=== PATIENT | male | born 1960 | race Caucasian/White ===

== ENCOUNTER 2017-11-03 09:09 | Emergency (ER) | payer BC, SELFPAY ==
--- NOTE | 2017-11-03 09:19 | XR_ITS ---
XR foot RT min 3V HISTORY: Right foot pain ITS.REASON: NO ACCIDENT ORDERING PHYSICIAN: Mora Forrest PATIENT AGE: 57 years COMPARISON: None FINDINGS: There is a nondisplaced transverse fracture involving the proximal aspect of the proximal phalanx of the third toe. A healing fracture involving the distal aspect of the second metatarsal. There is some flattening of the metatarsal head at that region with some overlying callus formation. Avascular necrosis of the head of second metatarsal is also a consideration. There is mild pes planus. IMPRESSION: 1. Nondisplaced fracture proximal phalanx of the third toe. 2. Healing fracture versus avascular necrosis of the head of the second metatarsal
[2017-11-03 09:30] VITALS: BP 147/64; PULSE 75; RESP 20; TEMP 37; O2SAT 99; BMI 36.9
--- NOTE | 2017-11-03 09:40 | HMH.EDUTC ---
[facility] [place] Clinical Impression: Toe fracture Qualifiers: Encounter type: initial encounter Toe: lesser toe Fracture type: closed Phalanx: proximal Fracture alignment: nondisplaced Laterality: right Qualified Code(s): S92.514A - Nondisplaced fracture of proximal phalanx of right lesser toe(s), initial encounter for closed fracture Disposition: Home, Self-Care Condition on Discharge: Good Instructions: How To Perform RICE (Rest, Ice, Compress, Elevate), Toe Fracture, DI for Toe Fracture Additional Instructions: Follow up with Dr Head in the Specialty clinic on November 05 at 830 am as instructed in the [facility] today for further treatment and evaluation and results on remaining labs Return if needed Follow up with family doctor Wear post op shoe until seen by Dr Head Referrals: Ashish Quiles MD [Primary Care Provider] - Ellen Head DPM [Physician] - 11/05/17 8:30 am Time of Disposition: 11:01 Medical Decision Making - Medical Records Medical records reviewed: Yes: I reviewed the patient's medical records. Vital Signs: 11/03/17 09:30 Temperature 98.6 F Temperature Source Temporal Artery Scan Pulse Rate [Right Radial] 75 Respiratory Rate 20 Blood Pressure [Right Arm] 147/64 Blood Pressure Mean [Right Arm] 91 02 Sat by Pulse Oximetry 99 Oxygen Delivery Method Room Air - Lab Data Lab Results 11/03/17 10:00: Uric Acid 5.9 Orders (Tests/Meds): ORDERS Category Date Time Status CRP [C-Reactive Protein] Stat Lab 11/03/17 10:51 Ordered Erythrocyte Sedimentation Rate Stat Lab 11/03/17 10:51 Ordered - Radiology Data #1 Image(s): Foot/Toes Image Reviewed: Yes I have reviewed radiologist's interpretation Non displaced fracture of the proximal phalanx of the third toe Healing fracture verses avascular necrosis of the head of the second metatarsal - Physician Consults Physician Consulted: Dr Head Time: 10:53 Reason -: Pt condition Comment/Response: Spoke with Dr Head advised to add ESR and CRP to labs, place patient in post op shoe and have him follow up in her office on at 830 am for further evaluation and exam - Tone Inquiry Pt receiving controlled substance: No Tone was queried for this patient: No - Reevaluation(s) Time: 10:57 Reevaluation #1: Patient placed in post op shoe, patient advised that he needed to follow up with Dr Head on for remaining lab results and further treatment and evaluation Patient verbalized understanding of instructions [facility] [place] HPI - General Stated complaint: Right Foot pain, no ao Mode of Arrival: Family Vehicle Source of Information: Patient Limitations: No Limitations Description of Symptoms (Recalled from Triage Doc. by RN): pt is having right foot pain for 1 week with swelling. pt has had gout before. HEENT Symptoms (Recalled from RN notes): No Resp Symptoms (Recalled from RN notes): No Skin Symptoms (Recalled from RN notes): No MS Symptoms (Recalled from RN notes): Yes (right foot pain and swelling) Functional Status (Recalled from RN notes): na - History of Present Illness Provider Complaint: Patient state that he noticed that he was having pain in the top of his right foot about a week ago State that he has had gout before and kind of feels like it did when he had it before State that pain is across the joints of his toes and has been slightly red, denies injury, States that foot has not been hot to touch just sore when he walks on it and bends his toes - Related Data Home Medications Medication Instructions Recorded Confirmed amlodipine 10 mg tablet 10 mg PO QDAY 10/05/17 11/03/17 carvedilol 25 mg tablet 25 mg PO BID 10/05/17 11/03/17 clopidogrel 75 mg tablet 75 mg PO QDAY 10/05/17 11/03/17 fenofibrate nanocrystallized 145 145 mg PO QDAY 10/05/17 11/03/17 mg tablet furosemide 40 mg tablet 40 mg PO BID tab 10/05/17 11/03/17 glimepiride 2 mg tablet 2 mg PO QDAY tab 10/05/17 11/03/17 linagliptin
--- NOTE | 2017-11-03 09:43 | ED_ITS ---
[facility] – [place] Disposition Clinical Impression: Toe fracture Qualifiers: Encounter type: initial encounter Toe: lesser toe Fracture type: closed Phalanx : proximal Fracture alignment: nondisplaced Laterality: right Qualified Code(s) : S92.514A - Nondisplaced fracture of proximal phalanx of right lesser toe(s), initial encounter for closed fracture Disposition: Home, Self-Care Condition on Discharge: Good Instructions: How To Perform RICE (Rest, Ice, Compress, Elevate), Toe Fracture , DI for Toe Fracture Additional Instructions: Follow up with Dr Head in the Specialty clinic on November 05 at 830 am as [facility] the [facility] today for further treatment and evaluation and results on remaining labs Return if needed Follow up with family doctor Wear post op shoe until seen by Dr Head Referrals: Ashish Quiles MD [Primary Care Provider] - Ellen Head DPM [Physician] - 11/05/17 8:30 am Time of Disposition: 11:01 Medical Decision Making - Medical Records Medical records reviewed: Yes: I reviewed the patient's medical records. Vital Signs: 11/03/17 09:30 Temperature 98.6 F Temperature Source Temporal Artery Scan Pulse Rate [Right Radial] 75 Respiratory Rate 20 Blood Pressure [Right Arm] 147/64 Blood Pressure Mean [Right Arm] 91 02 Sat by Pulse Oximetry 99 Oxygen Delivery Method Room Air - Lab Data Lab Results 11/03/17 10:00: Uric Acid 5.9 Orders (Tests/Meds): ORDERS Category Date Time Status CRP [C-Reactive Protein] Stat Lab 11/03/17 10:51 Ordered Erythrocyte Sedimentation Rate Stat Lab 11/03/17 10:51 Ordered - Radiology Data #1 Image(s): Foot/Toes Image Reviewed: Yes I have reviewed radiologist's interpretation Non displaced fracture of the proximal phalanx of the third toe Healing fracture verses avascular necrosis of the head of the second metatarsal - Physician Consults Physician Consulted: Dr Head Time: 10:53 Reason -: Pt condition Comment/Response: Spoke with Dr Head advised to add ESR and CRP to labs, place patient in post op shoe and have him follow up in her office on at 830 am for further evaluation and exam - Tone Inquiry Pt receiving controlled substance: No Tone was queried for this patient: No - Reevaluation(s) Time: 10:57 Reevaluation #1: Patient placed in post op shoe, patient advised that he needed to follow up with Dr Head on for remaining lab results and further treatment and evaluation Patient verbalized understanding of instructions [facility] [place] HPI - General Stated complaint: Right Foot pain, no ao Mode of Arrival: Family Vehicle Source of Information: Patient Limitations: No Limitations Description of Symptoms (Recalled from Triage Doc. by RN): pt is having right foot pain for 1 week with swelling. pt has had gout before. HEENT Symptoms (Recalled from RN notes): No Resp Symptoms (Recalled from RN notes): No Skin Symptoms (Recalled from RN notes): No MS Symptoms (Recalled from RN notes): Yes (right foot pain and swelling) Functional Status (Recalled from RN notes): na - History of Present Illness Provider Complaint: Patient state that he noticed that he was having pain in the top of his right foot about a week ago State that he has had gout before and kind of feels like it did when he had it before State that pain is across the joints of his toes and has been slightly red, denies injury, States that foot has
[2017-11-03 10:22] LABS: Uric Acid 5.9 mg/dL (2.6-7.2)
[2017-11-03 11:08] LABS: C-Reactive Protein < 0.2 mg/L (0.0-0.9)
[2017-11-03 11:23] VITALS: BP 150/46; PULSE 74; RESP 20; TEMP 36.7; O2SAT 99
[2017-11-03 11:59] LABS: Erythrocyte Sedimentation Rate 32 mm/hr (0-20)
== END 2017-11-03 11:25 | disposition home or self-care (01) ==
PROVIDERS: Emergency Provider Nurse Practitioner; PCP Family Medicine
DX: S92.514A Nondisplaced fracture of proximal phalanx of right lesser toe(s), initial encounter for closed fracture (principal); X58.XXXA Exposure to other specified factors, initial encounter; I48.91 Unspecified atrial fibrillation; I50.9 Heart failure, unspecified; I42.9 Cardiomyopathy, unspecified; E11.9 Type 2 diabetes mellitus without complications; I25.2 Old myocardial infarction; Z95.0 Presence of cardiac pacemaker; E78.5 Hyperlipidemia, unspecified; Z79.84 Long term (current) use of oral hypoglycemic drugs; Z79.02 Long term (current) use of antithrombotics/antiplatelets; Z79.899 Other long term (current) drug therapy
CPT/HCPCS: 36415; 73630; 84550; 85651; 86140; 99203

== ENCOUNTER → 2017-11-19 07:26 | Outpatient (CLI) | payer BC, SELFPAY ==
[2017-11-19 09:17] LABS: Alanine Aminotransferase 29 U/L (12-78); Albumin Level 3.8 gm/dL (3.4-5.0); Alkaline Phosphatase 56 U/L (46-116); Anion Gap 16.9 mEq/L (5-15); Aspartate Amino Transferase 14 U/L (15-37); Bilirubin,Direct 0.1 mg/dL (0.0-0.2); Bilirubin,Total 0.2 mg/dL (0.2-1.0); Blood Urea Nitrogen 36 mg/dL (7-18); Carbon Dioxide 21 mmol/L (21.0-32.0); Chloride 102 mmol/L (98-107); Chol/HDL Ratio 5.8 (1-3.5); Cholesterol 220 mg/dL (140-200); Creatinine,Serum 1.42 mg/dL (0.70-1.30); Estimated Glomerular Filt Rate 52 ml/min (>60); GFR (African American) 62 ML/MIN (>60); Glucose 224 mg/dL (74-106); HDL Cholesterol 38 mg/dL (27-67); LDL Cholesterol 115 mg/dL (0-130); Potassium 4.9 mmoL/L (3.5-5.1); Sodium 135 mmol/L (136-145); Total Protein,Serum 7.3 gm/dL (6.4-8.2); Triglycerides 337 mg/dL (30-200); VLDL Cholesterol 67 mg/dL (0-40)
== END ==
PROVIDERS: Physician Assistant; Visit Provider Internal Medicine
DX: N18.9 Chronic kidney disease, unspecified (principal); E78.4 Other hyperlipidemia; I25.10 Atherosclerotic heart disease of native coronary artery without angina pectoris; I50.22 Chronic systolic (congestive) heart failure
CPT/HCPCS: 36415; 80048; 80061; 80076; 83880

== ENCOUNTER → 2017-11-24 14:02 | Outpatient (CLI) | payer BC, SELFPAY ==
--- NOTE | 2017-11-24 14:04 | US_ITS ---
US Arterial Ankle Brachial Ind ITS.REASON: Ulceration of the right great toe, pain, claudication, previous smoker Evaluate for new skin changes ORDERING PHYSICIAN: Ellen Head DPM PATIENT AGE: 57 years TECHNIQUE: Segmental pressures obtained of both right and left leg. These are compared to brachial blood pressure to yield index at each level sampled including summary YADIRA. The data sheets from the procedure are available in PACS FINDINGS Rest study only performed today No prior studies available for comparison. Blood pressures reported are in millimeters mercury. RIGHT LEG YADIRA = 1.2 Right TBI 0.9. Brachial BP: 179 Thigh BP: 190 Calf BP: 194 Ankle PT: 219 Ankle DP : 203 Digit =157 LEFT LEG YADIRA = 0.8. Left tibia is 0.9 Brachial BPD: 182 Thigh BP: 196 Calf BP: 150 Ankle PT:152 Ankle DP: 153 Digit = 158 Pulses and waveforms: May waveforms of the left ankle otherwise unremarkable waveforms and pulses IMPRESSION: 1. Normal right YADIRA and TBI. 2. Slightly low left YADIRA of 0.8 indicating mild arterial disease with normal left YADIRA and slightly dampened left-sided waveforms at the ankle
== END ==
PROVIDERS: PCP Family Medicine; Visit Provider Podiatrist
DX: R23.9 Unspecified skin changes (principal)
CPT/HCPCS: 93922

== ENCOUNTER → 2017-12-03 08:14 | Outpatient (CLI) | payer BC, SELFPAY ==
--- NOTE | 2017-12-03 08:15 | XR_ITS ---
XR foot wt bearing RT 3V HISTORY: Right foot pain and swelling ORDERING PHYSICIAN: Ellen Head DPM PATIENT AGE: 57 years COMPARISON: 11/03/2017 FINDINGS: There is a comminuted fracture involving the distal aspect of the second metatarsal with prominent callus formation developing in the distal shaft of the second metatarsal. There is flattening of the head of the second metatarsal as mentioned previously. Lucency is noted at the distal neck of second metatarsal. A comminuted fracture involves the proximal aspect of the proximal phalanx of the third toe with intra-articular involvement and mild separation of the distal fracture fragment by approximately 3 mm. There is mild dorsal angulation of the distal fracture fragment.. Fracture line is now more prominent on today's study compared to the previous exam. There is a nondisplaced mildly impacted fracture involving the proximal aspect of the proximal phalanx of the fourth toe. This fracture was not readily apparent on the previous exam. IMPRESSION: 1. Comminuted fracture of the distal second metatarsal with overlying callus formation with good alignment. 2. Comminuted fracture base of the proximal phalanx of the third toe now more prominent. 3. Transverse fracture of the base of the proximal phalanx of the fourth toe not readily apparent on the previous exam
== END ==
PROVIDERS: Visit Provider Podiatrist
DX: T14.8XXA Other injury of unspecified body region, initial encounter (principal); E11.628 Type 2 diabetes mellitus with other skin complications
CPT/HCPCS: 73630

== ENCOUNTER → 2017-12-15 08:55 | Outpatient (CLI) | payer BC, SELFPAY ==
--- NOTE | 2017-12-15 08:55 | XR_ITS ---
Right foot Weightbearing Foot 3 Views HISTORY: Follow-up fracture ORDERING PHYSICIAN: Ellen Head DPM PATIENT AGE: 57 years COMPARISON: 12/03/2017 FINDINGS: There is a healing fracture involving the distal shaft of the second metatarsal with prominent callus formation with good alignment. Comminuted fracture involves the base of the proximal phalanx of the third toe with mild dorsal angulation of the distal fracture fragment with an intra-articular component. This fracture is not significant change. There is also a fracture noted at the base of the proximal phalanx of the fourth toe not significant change. IMPRESSION: Overall no change healing fracture of the distal aspect of second metatarsal and a nondisplaced fractures involving the base of the proximal phalanx of the third and fourth toes
== END ==
PROVIDERS: Visit Provider Podiatrist
DX: E11.610 Type 2 diabetes mellitus with diabetic neuropathic arthropathy (principal)
CPT/HCPCS: 73630

== ENCOUNTER → 2018-01-05 08:46 | Outpatient (CLI) | payer BC, SELFPAY ==
--- NOTE | 2018-01-05 08:47 | XR_ITS ---
XR foot wt bearing RT 3V HISTORY: ITS.REASON: pain ORDERING PHYSICIAN: Ellen Head DPM PATIENT AGE: 57 years COMPARISON: 12/15/2017 FINDINGS: There is a healing fracture involving the distal aspect of the second metatarsal with abundant callus formation as before. The callus formation may be slightly more ossified. There remains good alignment. Comminuted fracture involves proximal aspect of the proximal phalanx of the third toe with intra-articular involvement with some callus formation medially. Nondisplaced fracture involves the proximal aspect of the proximal phalanx of the fourth toe not significantly changed. IMPRESSION: Healing fractures of the second metatarsal and proximal phalanges of the third and fourth toes
== END ==
PROVIDERS: Visit Provider Podiatrist
DX: M79.671 Pain in right foot (principal)
CPT/HCPCS: 73630

== ENCOUNTER 2018-03-01 10:53 | Observation (INO) ==
[2018-03-01 12:28] LABS: Anion Gap 16.7 mEq/L (5-15); Blood Urea Nitrogen 27 mg/dL (7-18); Carbon Dioxide 24 mmol/L (21.0-32.0); Chloride 102 mmol/L (98-107); Glucose 152 mg/dL (74-106); Potassium 4.7 mmoL/L (3.5-5.1); Sodium 138 mmol/L (136-145)
[2018-03-01 15:23] LABS: Basophils % 0.3 % (0.1-2.0); Eosinophils # 0.2 K/mm3 (0.0-0.4); Hematocrit 34.3 % (42.0-52.0); Hemoglobin 10.7 g/dL (14.1-18.0); Lymphocytes # 1.4 K/mm3 (0.7-4.5); Lymphocytes % 12.9 K/mm3 (10-50); Mean Corpuscular HGB Conc 31.2 g/dL (31.8-35.4); Mean Corpuscular Hemoglobin 27.8 pg (27.0-31.2); Mean Corpuscular Volume 88.8 fl (80-94); Mean Platelet Volume 9.1 fl (7.4-10.4); Monocytes # 0.8 K/mm3 (0.1-1.0); Monocytes % 7.2 % (1.7-9.3); Neutrophils # 8.3 K/mm3 (1.8-7.8); Neutrophils % 77.7 % (37.0-80.0); Platelet Count 191 K/mm3 (142-424); Red Blood Count 3.86 M/mm3 (4.60-6.20); Red Cell Distribution Width 14.5 % (11.5-17.5); White Blood Count 10.6 K/mm3 (4.8-10.8)
--- NOTE | 2018-03-01 15:27 | History & Physical Report ---
*Admission Date: 03/01/18 <RandleMaggie burton 03/01/18 15:48> *Chief complaint: Shortness of breath <Maggie Randle 03/01/18 15:48> *History of present illness: Mr. Luke is a 57-year-old male with a history of hypertension hyperlipidemia type 2 diabetes mellitus, coronary artery disease, atrial fibrillation, chronic systolic heart failure, chronic kidney disease, and cardiomyopathy who presented today to the office of Dr. Concepcion with increasing shortness of breath for the past 4 days. He denies having any chest pain. Dr. Concepcion recommended admission for further evaluation and treatment. Patient describes extreme fatigue making it difficult for him to even walk. He states he has had no chest pain. He states that his heart has been fluttering. He states he has been compliant with taking all of his medicines. He denies cough, fever, and any GI symptoms. The time of this exam patient is lying in the bed. He appears comfortable. Dr. Concepcion has recommended Lasix 80 mg twice daily. <RaziaMaggie 03/01/18 15:57> [facility] History Medical History: Reports:: Atrial Fibrillation, Cardiomyopathy, Congestive Heart Failure, Coronary Artery Disease, Diabetes Mellitus Type 2, Hyperlipidemia , Internal Pacemaker, Myocardial Infarction, Palpitations, Renal Insufficiency Denies:: Cancer, Diabetes Mellitus Type 1, MRSA, Seizures <RandleMaggie burton 03/01/18 15:48> Other Medical History: Reports: Anemia <RandleMaggie 03/01/18 15:48> Laterality Cases: Bilateral: Tonsillectomy <RaziaMaggie 03/01/18 15:48> Other Surgeries: Yes: Pacemaker, Other (R arm sx, LHC) <RandleMaggie 15:48> Amputation: No <RaziaMaggie 03/01/18 15:48> Fractures: No <Maggie Randle 03/01/18 15:48> Comment: Cardiac stent placements <Maggie Randle 03/01/18 15:48> - *Social History Educational Level: Completed High School <RaziaMaggie 03/01/18 15:48> Smoking Status: Former smoker <Maggie Randle 03/01/18 15:48> # Packs/Day (cigarettes): 0 <Maggie Randle 03/01/18 15:48> #Yrs smoked (if former smoker): 0 <Maggie Randle 03/01/18 15:48> Smoking End Date: 2013 <Maggie Randle 03/01/18 15:48> Alcohol Intake: never <Maggie Randle 03/01/18 15:48> Alcohol Intake Frequency:: holidays/special occasions only <Maggie Randle 15:48> Substance Use Type: denies use <Maggie Randle 03/01/18 15:48> Occupational Status: employed <Maggie Randle 03/01/18 15:48> Housing: house <Maggie Randle 03/01/18 15:48> Household Members: spouse <Maggie Randle 03/01/18 15:48> - Psychiatric History Expresses thoughts of harming self/others: None <Maggie Randle 03/01/18 15: 48> Suicide Plan Description: No Plan <Maggie Randle 03/01/18 15:48> *Family Hx:: Cancer, Coronary Artery Disease <Maggie Randle 03/01/18 15:48> Review of Systems - Constitutional Reports fatigue, Reports lack of energy, Denies body ache(s), Denies fever(s), Denies headache(s) <Maggie Randle 03/01/18 15:48> - ENT Denies ear pain, Denies headache(s), Denies sore throat <Maggie Randle 03/01 15:48> - *Cardiovascular Reports shortness of breath, Reports irregular heart rhythm, Reports leg swelling, Denies chest pain <Maggie Randle 03/01/18 15:48> - *Respiratory Reports shortness of breath, Denies chest congestion, Denies cough, Denies coughing up blood <Maggie Randle 03/01/18 15:48> - *Gastrointestinal Denies abdominal pain, Denies change in bowel habits, Denies constipation, Denies heartburn, Denies difficulty swallowing, Denies heartburn, Denies vomiting blood, Denies nausea, Denies vomiting <Maggie Randle 03/01/18 15:48 > - *Genitourinary Denies difficulty urinating <Maggie Randle - 03/01/18 15:48> - *Musculoskeletal Denies body aches <Maggie Randle - 03/01/18 15:48> Comments: Recently has had 3 fractured toes on the right foot. He had to wear a boot for this. He has been followed by Dr. Head <RaziaMaggie - 03/01/18 15:48> - *Neurologic Reports unsteadiness, Denies behavioral changes <Hailey Randlehy - 03/01/18 15: 48> Meds Home Medications Medication Instructions Recorded Confirmed Type amlodipine 10 mg tablet 10 mg PO QDAY 10/05/17 03/01/18 History carvedilol 25 mg tablet 25 mg PO BID 10/05/17 03/01/18 History fenofibrate nanocrystallized 145 145 mg PO QDAY 10/05/17 03/01/18 History mg tablet linagliptin 5 mg tablet 5 mg PO QDAY 10/05/17 03/01/18 History metformin 850 mg tablet 850 mg PO BID 10/05/17 03/01/18 History spironolactone 50 mg tablet 50 mg PO BID 10/05/17 03/01/18 History furosemide 40 mg tablet 40 mg PO DAILY tab 11/18/17 03/01/18 History aspirin 81 mg tablet,delayed 81 mg PO DAILY tab 02/17/18 03/01/18 History release glimepiride 2 mg tablet 2 mg PO BID tab 02/17/18 03/01/18 History Rosuvastatin Calcium 40 mg PO DAILY 03/01/18 03/01/18 History <Ashish Quiles - 03/01/18 17:18> Allergies Allergy/AdvReac Type Severity Reaction Status Date / Time No Known Allergies Allergy Verified 01/05/18 10:00 <Ashish Quiles - 03/01/18 17:18> Exam Vital signs and Labs for Last 24 Hours: Temp Pulse Resp BP Pulse Ox 98.3 F 62 20 155/71 97 03/01/18 14:54 03/01/18 14:54 03/01/18 14:54 03/01/18 14:54 03/01/18 14:54 Laboratory Results - last 24 hr 03/01/18 10:55: Sodium 138, Potassium 4.7, Chloride 102, Carbon Dioxide 24, Anion Gap 16.7 H, BUN 27 H, Creatinine 1.72 H, Estimated GFR 41 L, Est GFR ( Amer) 50 L, Glucose 152 H, Calcium 9.0 03/01/18 10:55: B-Natriuretic Peptide 1240 H 03/01/18 14:55: WBC 10.6, RBC 3.86 L, Hgb 10.7 L, Hct 34.3 L, MCV 88.8, MCH 27.8 , MCHC 31.2 L, RDW 14.5, Plt Count 191, MPV 9.1, Neut % (Auto) 77.7, Lymph % ( Auto) 12.9, Morton % (Auto) 7.2, Eos % (Auto) 2.0, Baso % (Auto) 0.3, Neut # (Auto ) 8.3 H, Lymph # (Auto) 1.4, Morton # (Auto) 0.8, Eos # (Auto) 0.2, Baso # (Auto) 0.0 03/01/18 14:55: Magnesium 1.6 03/01/18 14:55: Troponin I < 0.02, TSH 0.98 <Ashish Quiles - 03/01/18 17:18> Temp Pulse Resp BP Pulse Ox 98.3 F 62 20 155/71 97 03/01/18 14:54 03/01/18 14:54 03/01/18 14:54 03/01/18 14:54 03/01/18 14:54 Laboratory Results - last 24 hr 03/01/18 10:55: Sodium 138, Potassium 4.7, Chloride 102, Carbon Dioxide 24, Anion Gap 16.7 H, BUN 27 H, Creatinine 1.72 H, Estimated GFR 41 L, Est GFR ( Amer) 50 L, Glucose 152 H, Calcium 9.0 03/01/18 10:55: B-Natriuretic Peptide 1240 H <Maggie Randle - 03/01/18 15:48> I & O for Last 24 hours: Intake & Output 02/27/18 02/28/18 03/01/18 03/02/18 11:59 11:59 11:59 11:59 Weight 311 lb 8 oz <Ashish Quiles - 03/01/18 17:18> Intake & Output 02/27/18 02/28/18 03/01/18 03/02/18 11:59 11:59 11:59 11:59 Weight 311 lb 8 oz <Maggie Randle 03/01/18 15:48> Radiology Reports for the Last 24 Hours: Chest x-ray 03/01/2018 IMPRESSION: Stable chest with nothing definitely acute Mild cardiomegaly. Pacer/February device overlying left chest. <Maggie Randle 03/01/18 15:48> - Constitutional no acute distress <Maggie Randle 03/01/18 15:48> - *Routine HEENT Exam Head: Present: normocephalic, atraumatic <Maggie Randle 03/01/18 15:48> Eye: Present: PERRL. Absent: conjunctival icterus, scleral injection <Maggie Randle 03/01/18 15:48> ENT: Present: mucous membranes moist, oropharynx clear, nares patent <Maggie Randle 03/01/18 15:48> - *Routine Neck Exam Present: supple. Absent: carotid bruit, lymphadenopathy, thyromegaly <Maggie Randle 03/01/18 15:48> - *Routine Respiratory Exam Present: CTA bilaterally (Anteriorly and posteriorly. Diminished breath sounds posteriorly) <Maggie Randle 03/01/18 15:48> - *Routine Cardiovascular Exam Present: RRR <Maggie Randle 03/01/18 15:48> - *Routine Abdominal Exam Present: soft, normoactive bowel sounds. Absent: tenderness <Maggie Randle 03/01/18 15:48> Comments: Obese <[facility] 03/01/18 15:48> - *Routine Extremities Exam Present: edema (Of the right leg no edema in the left leg). Absent: clubbing, calf tenderness <Maggie Randle 03/01/18 15:48> - *Routine Neurological Exam Present: alert, oriented X3, moving all extremities. Absent: altered mental status <Maggie Randle 03/01/18 15:48> H&P: Result - Labs Labs: Short CBC 03/01/18 Range/Units 14:55 WBC 10.6 (4.8-10.8) K/mm3 Hgb 10.7 L (14.1-18.0) g/dL Hct 34.3 L (42.0-52.0) % Plt Count 191 (142-424) K/mm3 [facility] 03/01/18 10:55 Sodium 138 Potassium 4.7 Chloride 102 Carbon Dioxide 24 BUN 27 H Creatinine 1.72 H Glucose 152 H Calcium 9.0 Cardiac Enzymes 03/01/18 Range/Units 14:55 Troponin I < 0.02 (0.00-0.06) ng/ml <Ashish Quiles - 03/01/18 17:18> [facility] 03/01/18 10:55 Sodium 138 Potassium 4.7 Chloride 102 Carbon Dioxide 24 BUN 27 H Creatinine 1.72 H Glucose 152 H Calcium 9.0 <Maggie Randle - 03/01/18 15:48> Assessment and Plan (1) CHF (congestive heart failure) Current visit: Yes Status: Acute Category: Medical Code(s): I50.9 - Heart failure, unspecified (2) Hyperlipidemia Current visit: No Status: Acute Qualifiers: Hyperlipidemia type: other hyperlipidemia Qualified Code(s): E78.4 - Other hyperlipidemia Category: Medical Code(s): E78.5 - Hyperlipidemia, unspecified (3) Diabetes mellitus Current visit: No Status: Chronic Qualifiers: Diabetes mellitus type: type 2 Diabetes mellitus chcf insulin use: with chcf use Diabetes mellitus complication status: with neurologic complications Diabetes mellitus complication detail: with polyneuropathy Qualified Code(s): E11.42 - Type 2 diabetes mellitus with diabetic polyneuropathy; Z79.4 - director long term care (current) use of insulin Category: Medical Code(s): E11.9 - Type 2 diabetes mellitus without complications (4) Sleep apnea Current visit: No Status: Chronic Qualifiers: Sleep apnea type: unspecified type Qualified Code(s): G47.30 - Sleep apnea , unspecified Category: Medical Code(s): G47.30 - Sleep apnea, unspecified (5) Hypertensive disorder Current visit: No Status: Chronic Qualifiers: Hypertension type: essential hypertension Qualified Code(s): I10 - Essential (primary) hypertension Category: Medical Code(s): I10 - Essential (primary) hypertension (6) Chronic kidney disease Current visit: No Status: Acute Qualifiers: Chronic kidney disease stage: unspecified stage Qualified Code(s): N18.9 - Chronic kidney disease, unspecified Category: Medical Code(s): N18.9 - Chronic kidney disease, unspecified (7) Hypercalcemia Current visit: No Status: Acute Category: Medical Code(s): E83.52 - Hypercalcemia <Ashish Quiles - 03/01/18 17:18> (1) CHF (congestive heart failure) Current visit: Yes Status: Acute Category: Medical Code(s): I50.9 - Heart failure, unspecified (2) Chronic kidney disease Current visit: No Status: Acute Qualifiers: Chronic kidney disease stage: unspecified stage Qualified Code(s): N18.9 - Chronic kidney disease, unspecified Category: Medical Code(s): N18.9 - Chronic kidney disease, unspecified (3) Chronic systolic heart failure Current visit: No Status: Chronic Category: Medical Code(s): I50.22 - Chronic systolic (congestive) heart failure (4) Coronary arteriosclerosis Current visit: No Status: Chronic Category: Medical Code(s): I25.10 - Atherosclerotic heart disease of [place] coronary artery without angina pectoris (5) Diabetes mellitus Current visit: No Status: Chronic Qualifiers: Diabetes mellitus type: type 2 Diabetes mellitus terminologist insulin use: with chcf use Diabetes mellitus complication status: with neurologic complications Diabetes mellitus complication detail: with polyneuropathy Qualified Code(s): E11.42 - Type 2 diabetes mellitus with diabetic polyneuropathy; Z79.4 - director long term care (current) use of insulin Category: Medical Code(s): E11.9 - Type 2 diabetes mellitus without complications (6) Hypertensive disorder Current visit: No Status: Chronic Qualifiers: Hypertension type: essential hypertension Qualified Code(s): I10 - Essential (primary) hypertension Category: Medical Code(s): I10 - Essential (primary) hypertension (7) Sleep apnea Current visit: No Status: Chronic Qualifiers: Sleep apnea type: unspecified type Qualified Code(s): G47.30 - Sleep apnea , unspecified Category: Medical Code(s): G47.30 - Sleep apnea, unspecified (8) Toe fracture Current visit: No Status: Chronic Qualifiers: Encounter type: initial encounter Toe: lesser toe Fracture type: closed Phalanx: proximal Fracture alignment: nondisplaced Laterality: right Qualified Code(s): S92.514A - Nondisplaced fracture of proximal phalanx of right lesser toe(s), initial encounter for closed fracture Category: Medical Code(s): S92.919A - Unspecified fracture of unspecified toe( s), initial encounter for closed fracture <Maggie Randle - 03/01/18 15:54> - Assessment and plan all Dx Assessment and Plan for all problems:: Saw patient, agree with above note. <Ashish Quiles - 03/01/18 17:18> monitor; diuresis; ECHO <Maggie Randle - 03/01/18 15:52>
--- NOTE | 2018-03-01 15:37 | Consult Report ---
History of Present Illness Consult date: 03/01/18 Consult reason: congestive heart failure Chief complaint: Congestive heart failure, shortness of breath and edema of lower extremity Additional Medical History:: 1. Cardiomypathy a. Last echocardiogram (03/23): Ejection fraction 40% with segmental wall motion. 2. Coronary arteriosclerosis a. Acute ST elevation myocardial infarction (09/22) b. Last catheterization (09/22). Severely elevated left ventricular end diastolic pressure at 35mmHg. 3. Hypertension 4. Chronic Kidney disease, unspecific CKD stage. a. Creatinine 1.72 and BUN 27 (03/01/18) 5. Chronic Systolic Heart failure a. Non-functioning pacemaker defibrillator that had been turned off for 10+ years due to continuously shocking pt. 6. Hyperlipidemia a. LDL 115 (11/22) b. Currently on a statin. 7. Type 2 Diabetes Mellitus a. Non-complaint 8. Obstructive sleep apnea a. Untreated 9. Atrial fibrillation a. Currently on Xarelto. History of present illness: 57 year old white male admitted to facility for Congestive heart failure excerbation. Pt stated that he had been having increase shortness of breath and edema of the lower right extremity for the past 2-3 days. Pt denies chest pain or dizziness. Denies palpitations. Pt stated that he continues to take his diuretics as prescribed but the fluid was still in his abdomen and lower extremities. Pt does have a history of Congestive heart failure with severe elevated left ventricular end diastolic pressure at 35 from cath on 09/22. Last echocardiogram revealed Ef of 40% with abnormal segmental wall motion (03/23). Pt does have pacemaker/defibrillator intact but was turned off over 10 years ago due to continuous shocking from the defibrillator. Dr. Concepcion and pt have discussed in length the benefits of BI-V pacemaker/defibrillator but pt continues to refuse to have implanted. Initial EKG revealed Atrial fibrillation with possible anterior infarct with heart rate of 75bpm. BMP revealed Creatinine of 1.72 and BUN of 27 which have increased since 11/22. BNP 1240. Last BNP in 11/22 was 230. Chest xray revealed stable chest with nothing definitely acute and mild cardiomegaly. Pt admitted for diuretic therapy. [facility] History Medical History: Reports:: Atrial Fibrillation, Cardiomyopathy, Congestive Heart Failure, Coronary Artery Disease, Diabetes Mellitus Type 2, Hyperlipidemia , Internal Pacemaker, Myocardial Infarction, Palpitations, Renal Disease Denies:: Cancer, Diabetes Mellitus Type 1, MRSA Other Medical History: Reports: Anemia Laterality Cases: Bilateral: Tonsillectomy Other Surgeries: Yes: Pacemaker, Other (R arm sx, LHC) Amputation: No Fractures: No - *Social History Educational Level: Completed High School Smoking Status: Former smoker # Packs/Day (cigarettes): 0 #Yrs smoked (if former smoker): 0 Smoking End Date: 2013 Alcohol Intake: never Alcohol Intake Frequency:: holidays/special occasions only Substance Use Type: denies use Occupational Status: employed Housing: house Household Members: spouse - Psychiatric History Expresses thoughts of harming self/others: None Suicide Plan Description: No Plan *Family Hx:: No significant family history Meds Home Medications Medication Instructions Recorded Confirmed Type amlodipine 10 mg tablet 10 mg PO QDAY 10/05/17 11/03/17 History carvedilol 25 mg tablet 25 mg PO BID 10/05/17 11/03/17 History fenofibrate nanocrystallized 145 145 mg PO QDAY 10/05/17 11/03/17 History mg tablet linagliptin 5 mg tablet 5 mg PO QDAY 10/05/17 11/03/17 History metformin 850 mg tablet 850 mg PO BID 10/05/17 11/03/17 History spironolactone 50 mg tablet 50 mg PO BID 10/05/17 11/03/17 History furosemide 40 mg tablet 40 mg PO DAILY tab 11/18/17 History aspirin 81 mg tablet,delayed 81 mg PO DAILY tab 02/17/18 History release glimepiride 2 mg tablet 2 mg PO BID tab 02/17/18 History Rosuvastatin Calcium 40 mg PO DAILY 03/01/18 03/01/18 History Allergies Allergy/AdvReac Type Severity Reaction Status Date / Time No Known Allergies Allergy Verified 01/05/18 10:00 Review of Systems - Review of Systems Review of systems:: pertinent systems reviewed and negative unless documented below - Constitutional Reports daytime sleepiness, Reports fatigue, Reports lack of energy, Reports weakness, Reports weight gain - ENT Denies dizziness, Denies difficulty swallowing - *Cardiovascular Reports shortness of breath, Reports shortness of breath with activity, Reports generalized swelling, Reports irregular heart rhythm, Reports leg swelling, Reports shortness of breath when lying down, Denies chest pain, Denies chest pain at rest, Denies chest pain with activity, Denies leg pain with activity, Denies lightheadedness, Denies radiating jaw, neck or arm pain - *Respiratory Reports shortness of breath, Reports shortness of breath with activity, Denies change in phlegm color, Denies chest congestion, Denies cough, Denies stridor, Denies wheezing - *Gastrointestinal Reports bloating, Denies abdominal pain, Denies heartburn, Denies difficulty swallowing - *Musculoskeletal Reports muscle weakness, Denies abnormal walking - *Neurologic Denies abnormal walking, Denies abnormal hearing, Denies abnormal speech, Denies confusion, Denies tingling/numbness/burning sensations - Psychiatric Denies abnormal sleep pattern, Denies confusion, Denies irritability - Endocrine Reports increased thirst Exam Vital signs and Labs for Last 24 Hours: Temp Pulse Resp BP Pulse Ox 98.3 F 62 20 155/71 97 03/01/18 14:54 03/01/18 14:54 03/01/18 14:54 03/01/18 14:54 03/01/18 14:54 Laboratory Results - last 24 hr 03/01/18 10:55: Sodium 138, Potassium 4.7, Chloride 102, Carbon Dioxide 24, Anion Gap 16.7 H, BUN 27 H, Creatinine 1.72 H, Estimated GFR 41 L, Est GFR ( Amer) 50 L, Glucose 152 H, Calcium 9.0 03/01/18 10:55: B-Natriuretic Peptide 1240 H I & O for Last 24 hours: Intake & Output 02/26/18 02/27/18 02/28/18 03/01/18 23:59 23:59 23:59 23:59 Weight 311 lb 8 oz - Constitutional mild distress, obese - *Routine HEENT Exam Head: Present: normocephalic Eye: Present: EOMI ENT: Present: mucous membranes moist - *Routine Neck Exam Present: supple, full ROM, normal carotid upstroke, trachea midline. Absent: JVD, carotid bruit, lymphadenopathy, thyromegaly - Routine Chest/Breast/Axilla Exam Chest wall: Present: tenderness, pacemaker. Absent: mass - *Routine Respiratory Exam Present: accessory muscle use, CTA bilaterally - *Routine Cardiovascular Exam Present: RRR, Normal S1, Normal S2, murmur, S3, irregular rhythm. Absent: gallop, rubs - *Routine Abdominal Exam Present: distended, firm - *Routine Extremities Exam Present: edema, full ROM, pulses intact, normal capillary refill. Absent: cyanosis, clubbing - *Routine Skin Exam Present: intact, dry, warm. Absent: cyanosis, erythema, rash - *Routine Neurological Exam Present: alert, oriented X3, CN II-XII intact, moving all extremities, hearing grossly intact, normal speech - Routine Psychiatric Exam Present: normal affect Assessment and Plan (1) CHF (congestive heart failure) Current visit: Yes Status: Acute Category: Medical Code(s): I50.9 - Heart failure, unspecified (2) Hyperlipidemia Current visit: No Status: Acute Qualifiers: Hyperlipidemia type: other hyperlipidemia Qualified Code(s): E78.4 - Other hyperlipidemia Category: Medical Code(s): E78.5 - Hyperlipidemia, unspecified (3) Diabetes mellitus Current visit: No Status: Chronic Qualifiers: Diabetes mellitus type: type 2 Diabetes mellitus 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 Diabetes mellitus complication status: with neurologic complications Diabetes mellitus complication detail: with polyneuropathy Qualified Code(s): E11.42 - Type 2 diabetes mellitus with diabetic polyneuropathy; Z79.4 - intermodal owner operator truck driver (current) use of insulin Category: Medical Code(s): E11.9 - Type 2 diabetes mellitus without complications (4) Sleep apnea Current visit: No Status: Chronic Qualifiers: Sleep apnea type: unspecified type Qualified Code(s): G47.30 - Sleep apnea , unspecified Category: Medical Code(s): G47.30 - Sleep apnea, unspecified (5) Hypertensive disorder Current visit: No Status: Chronic Qualifiers: Hypertension type: essential hypertension Qualified Code(s): I10 - Essential (primary) hypertension Category: Medical Code(s): I10 - Essential (primary) hypertension (6) Chronic kidney disease Current visit: No Status: Acute Qualifiers: Chronic kidney disease stage: unspecified stage Qualified Code(s): N18.9 - Chronic kidney disease, unspecified Category: Medical Code(s): N18.9 - Chronic kidney disease, unspecified (7) Hypercalcemia Current visit: No Status: Acute Category: Medical Code(s): E83.52 - Hypercalcemia - Assessment and plan all Dx Assessment and Plan for all problems:: Plan: 1. Obtain Echocardiogram for LV function and valve status. 2. Add Lasix 80mg BID IV for fluid retention and elevated creatinine and BUN. 3. Continue current medication regimen.
[2018-03-01 15:43] LABS: Thyroid Stimulating Hormone 0.98 uIU/ml (0.358-3.740)
--- NOTE | 2018-03-01 20:12 | Cardiology Report ---
PROCEDURE: 2-D M-mode and color Doppler study INDICATIONS FOR THE TEST: Chest pain COPD= Heart Murmur Tobacco Smoking Palpitations Fatigue Syncope Edema Hypertension Diabetes Mellitus Rheumatic Fever SOB=MAGUIRE Obesity Hyperlipidemia Family History HD Additional History PATIENT INFORMATION HEIGHT: 74 WEIGHT:302 GENDER: Male B/P:149/71 2-D/M-MODE INTERPRETATION: 2-D MEASUREMENTS OBSERVED VALUES IN CMS Right Ventricular Dimension (RVDd) 3.6 Interventricular Septum (Thickness)(IVsd) 1.7 Left Ventricular Internal Dimensions(LVIDd) 6.2 Left Ventricular Posterior Wall (Thickness)(LVPWd) 1.2 Aortic Root 3.9 Aortic Cusp Separation 2.2 Left Atrial Dimensions (LAD) 5.2 2D 1. Technically difficult study because of the patient's factor and poor acoustic windows, endocardial surfaces are poorly visualized despite use of contrast 2. Left atrium is moderately enlarged, left ventricle is mildly dilated, mild concentric left ventricular hypertrophy, reduced left ventricular systolic function, visually estimated ejection fraction approximately 40%, there is marked hypokinesis involving the inferior, inferobasal and inferolateral apical wall. 3. The right atrium and right ventricle are enlarged with normal contractility. 4. The mitral and tricuspid valve leaflets are minimally thickened. 5. The pulmonic valve is poorly visualized. 6. No significant pericardial effusion noted. DOPPLER INTERROGATION: Doppler interrogation of the aortic, mitral and tricuspid valvular presence of moderate mitral and mild tricuspid regurgitation, tricuspid regurgitant jet velocity is insufficient for calculation of the right ventricular systolic pressure, diastolic parameters are inconclusive. CONCLUSION: 1. Moderately enlarged left atrium, mildly dilated left ventricle, reduced left ventricular systolic function, visually estimated ejection fraction approximately 40% with multiple segmental wall motion abnormality described above, diastolic parameters are inconclusive. 2. Mildly enlarged right ventricle with normal contractility. 3. Moderate mitral and mild tricuspid regurgitation 4. No significant pericardial effusion noted.
[2018-03-02 06:04] LABS: Basophils % 0.4 % (0.1-2.0); Eosinophils % 0.4 % (0.1-12.0); Hematocrit 33.3 % (42.0-52.0); Hemoglobin 10.1 g/dL (14.1-18.0); Lymphocytes # 1.1 K/mm3 (0.7-4.5); Lymphocytes % 13.1 K/mm3 (10-50); Mean Corpuscular HGB Conc 30.3 g/dL (31.8-35.4); Mean Corpuscular Hemoglobin 27.1 pg (27.0-31.2); Mean Corpuscular Volume 89.3 fl (80-94); Mean Platelet Volume 9.9 fl (7.4-10.4); Monocytes # 0.8 K/mm3 (0.1-1.0); Monocytes % 10.1 % (1.7-9.3); Neutrophils # 6.4 K/mm3 (1.8-7.8); Platelet Count 176 K/mm3 (142-424); Red Blood Count 3.73 M/mm3 (4.60-6.20); Red Cell Distribution Width 14.2 % (11.5-17.5); White Blood Count 8.4 K/mm3 (4.8-10.8)
[2018-03-02 06:20] LABS: Anion Gap 12.9 mEq/L (5-15); Calcium 8.9 mg/dL (8.5-10.1); Chol/HDL Ratio 2.8 (1-3.5); Potassium 3.9 mmoL/L (3.5-5.1)
--- NOTE | 2018-03-02 07:38 | Pharmacy Consult Notes ---
[facility] Pharmacy VTE Monitoring - Patient Demographics Admission date: 03/01/18 Report Date: 03/02/18 Time: 07:37 Allergies/Adverse Reactions: Patient Allergies No Known Allergies Allergy (Verified 01/05/18 10:00) Height: 1.85 m Weight: 141.294 kg Patient Problems: Current Active Problems CHF (congestive heart failure) (Acute) - VTE Risk Labs: VTE Related Lab Results Hgb 10.1 g/dL (14.1-18.0) L 03/02/18 05:45 Hct 33.3 % (42.0-52.0) L 03/02/18 05:45 Plt Count 176 K/mm3 (142-424) 03/02/18 05:45 BUN 25 mg/dL (7-18) H 03/02/18 05:45 Creatinine 1.66 mg/dL (0.70-1.30) H 03/02/18 05:45 Estimated Creat Clear 99 mL/min (0-300) 03/02/18 05:45 Was VTE Risk Assessment Performed: Yes VTE Risk Level: Low Risk - Prophylaxis VTE Prophylaxis Ordered?: Yes Types of VTE Prophylaxis: TEDS Knee High, Pharmacological Location of Applied Device: Bilateral Lower Extremeties Pharmacologic Type: Other (XARELTO) - VTE Diagnosis Confirmed Treatment or plan recommended: Continue Current Treatment
--- NOTE | 2018-03-02 08:29 | Progress Note ---
<Maggie Randle - Last Filed: 03/02/18 08:25> Internal Medicine - PN: Subj *Date: 03/02/18 *Time: 08:25 Interval history: Did not sleep much during the night. Denies shortness of breath and chest discomfort. He has been eating without difficulty and is hungry this morning. He has been up in the room. Cardiology has seen the patient this morning and states it is okay for him to go home this today with Lasix 80 mg in the morning and 40 mg in the p.m. Exam Vital signs and Labs for Last 24 Hours: Temp Pulse Resp BP Pulse Ox 98.6 F 68 18 114/50 100 03/02/18 07:46 03/02/18 07:46 03/02/18 07:46 03/02/18 07:46 03/02/18 07:46 Laboratory Results - last 24 hr 03/01/18 10:55: Sodium 138, Potassium 4.7, Chloride 102, Carbon Dioxide 24, Anion Gap 16.7 H, BUN 27 H, Creatinine 1.72 H, Estimated GFR 41 L, Est GFR ( Amer) 50 L, Glucose 152 H, Calcium 9.0 03/01/18 10:55: B-Natriuretic Peptide 1240 H 03/01/18 14:55: WBC 10.6, RBC 3.86 L, Hgb 10.7 L, Hct 34.3 L, MCV 88.8, MCH 27.8 , MCHC 31.2 L, RDW 14.5, Plt Count 191, MPV 9.1, Neut % (Auto) 77.7, Lymph % ( Auto) 12.9, [place] % (Auto) 7.2, Eos % (Auto) 2.0, Baso % (Auto) 0.3, Neut # (Auto ) 8.3 H, Lymph # (Auto) 1.4, [place] # (Auto) 0.8, Eos # (Auto) 0.2, Baso # (Auto) 0.0 03/01/18 14:55: Magnesium 1.6 03/01/18 14:55: Troponin I < 0.02, TSH 0.98 03/01/18 14:55: Hemoglobin A1c 7.5 H 03/01/18 16:56: POC Glucose 150 H 03/01/18 21:10: POC Glucose 197 H 03/02/18 05:45: Sodium 137, Potassium 3.9, Chloride 103, Carbon Dioxide 25, Anion Gap 12.9, BUN 25 H, Creatinine 1.66 H, Estimated Creat Clear 99, Estimated GFR 43 L, Est GFR ( Amer) 52 L, Glucose 147 H, Calcium 8.9, Iron 16 L, Triglycerides 103, Cholesterol 91 L, LDL Cholesterol 38, VLDL Cholesterol 21, HDL Cholesterol 32, Cholesterol/HDL Ratio 2.8 03/02/18 05:45: WBC 8.4, RBC 3.73 L, Hgb 10.1 L, Hct 33.3 L, MCV 89.3, MCH 27.1 , MCHC 30.3 L, RDW 14.2, Plt Count 176, MPV 9.9, Neut % (Auto) 76.0, Lymph % ( Auto) 13.1, [place] % (Auto) 10.1 H, Eos % (Auto) 0.4, Baso % (Auto) 0.4, Neut # ( Auto) 6.4, Lymph # (Auto) 1.1, [place] # (Auto) 0.8, Eos # (Auto) 0.0, Baso # (Auto ) 0.0 03/02/18 06:22: POC Glucose 144 H I & O for Last 24 hours: Intake & Output 02/27/18 02/28/18 03/01/18 03/02/18 11:59 11:59 11:59 11:59 Intake Total 480 / 480 Output Total 2049 / 2049 Balance -1570 / -1570 Weight 311 lb 8 oz Radiology Reports for the Last 24 Hours: Echocardiogram 03/01/2018 CONCLUSION: 1. Moderately enlarged left atrium, mildly dilated left ventricle, reduced left ventricular systolic function, visually estimated ejection fraction approximately 40% with multiple segmental wall motion abnormality described above, diastolic parameters are inconclusive. 2. Mildly enlarged right ventricle with normal contractility. 3. Moderate mitral and mild tricuspid regurgitation 4. No significant pericardial effusion noted. - Constitutional no acute distress - *Routine Respiratory Exam Present: CTA bilaterally (Anteriorly and posteriorly) - *Routine Cardiovascular Exam Present: irregular rhythm (Monitor showing atrial fibrillation) - *Routine Abdominal Exam Present: soft, normoactive bowel sounds. Absent: tenderness - *Routine Extremities Exam Absent: edema, full ROM, calf tenderness - *Routine Neurological Exam Present: alert, oriented X3 Assessment and Plan (1) CHF (congestive heart failure) Current visit: Yes Status: Acute Category: Medical Code(s): I50.9 - Heart failure, unspecified (2) Hyperlipidemia Current visit: No Status: Acute Qualifiers: Hyperlipidemia type: other hyperlipidemia Qualified Code(s): E78.4 - Other hyperlipidemia Category: Medical Code(s): E78.5 - Hyperlipidemia, unspecified (3) Diabetes mellitus Current visit: No Status: Chronic Qualifiers: Diabetes mellitus type: type 2 Diabetes mellitus intermediate frame tender insulin use: with intermediate frame tender use Diabetes mellitus complication status: with neurologic complications Diabetes mellitus complication detail: with polyneuropathy Qualified Code(s): E11.42 - Type 2 diabetes mellitus with diabetic polyneuropathy; Z79.4 - correction (current) use of insulin Category: Medical Code(s): E11.9 - Type 2 diabetes mellitus without complications (4) Sleep apnea Current visit: No Status: Chronic Qualifiers: Sleep apnea type: unspecified type Qualified Code(s): G47.30 - Sleep apnea , unspecified Category: Medical Code(s): G47.30 - Sleep apnea, unspecified (5) Hypertensive disorder Current visit: No Status: Chronic Qualifiers: Hypertension type: essential hypertension Qualified Code(s): I10 - Essential (primary) hypertension Category: Medical Code(s): I10 - Essential (primary) hypertension (6) Chronic kidney disease Current visit: No Status: Acute Qualifiers: Chronic kidney disease stage: unspecified stage Qualified Code(s): N18.9 - Chronic kidney disease, unspecified Category: Medical Code(s): N18.9 - Chronic kidney disease, unspecified (7) Hypercalcemia Current visit: No Status: Acute Category: Medical Code(s): E83.52 - Hypercalcemia - Assessment and plan all Dx Assessment and Plan for all problems:: Patient will go home today with increase in his Lasix dosage. Cardiology to follow-up with him in the office on 03/05/2018 with repeat labs at that time. <Ashish Quiles - Last Filed: 03/02/18 08:44> Internal Medicine - PN: Subj *Date: 03/02/18 *Time: 08:44 Exam Vital signs and Labs for Last 24 Hours: Temp Pulse Resp BP Pulse Ox 98.6 F 68 18 114/50 100 03/02/18 07:46 03/02/18 07:46 03/02/18 07:46 03/02/18 07:46 03/02/18 07:46 Laboratory Results - last 24 hr 03/01/18 10:55: Sodium 138, Potassium 4.7, Chloride 102, Carbon Dioxide 24, Anion Gap 16.7 H, BUN 27 H, Creatinine 1.72 H, Estimated GFR 41 L, Est GFR ( Amer) 50 L, Glucose 152 H, Calcium 9.0 03/01/18 10:55: B-Natriuretic Peptide 1240 H 03/01/18 14:55: WBC 10.6, RBC 3.86 L, Hgb 10.7 L, Hct 34.3 L, MCV 88.8, MCH 27.8 , MCHC 31.2 L, RDW 14.5, Plt Count 191, MPV 9.1, Neut % (Auto) 77.7, Lymph % ( Auto) 12.9, [place] % (Auto) 7.2, Eos % (Auto) 2.0, Baso % (Auto) 0.3, Neut # (Auto ) 8.3 H, Lymph # (Auto) 1.4, [place] # (Auto) 0.8, Eos # (Auto) 0.2, Baso # (Auto) 0.0 03/01/18 14:55: Magnesium 1.6 03/01/18 14:55: Troponin I < 0.02, TSH 0.98 03/01/18 14:55: Hemoglobin A1c 7.5 H 03/01/18 16:56: POC Glucose 150 H 03/01/18 21:10: POC Glucose 197 H 03/02/18 05:45: Sodium 137, Potassium 3.9, Chloride 103, Carbon Dioxide 25, Anion Gap 12.9, BUN 25 H, Creatinine 1.66 H, Estimated Creat Clear 99, Estimated GFR 43 L, Est GFR ( Amer) 52 L, Glucose 147 H, Calcium 8.9, Iron 16 L, Triglycerides 103, Cholesterol 91 L, LDL Cholesterol 38, VLDL Cholesterol 21, HDL Cholesterol 32, Cholesterol/HDL Ratio 2.8 03/02/18 05:45: WBC 8.4, RBC 3.73 L, Hgb 10.1 L, Hct 33.3 L, MCV 89.3, MCH 27.1 , MCHC 30.3 L, RDW 14.2, Plt Count 176, MPV 9.9, Neut % (Auto) 76.0, Lymph % ( Auto) 13.1, [place] % (Auto) 10.1 H, Eos % (Auto) 0.4, Baso % (Auto) 0.4, Neut # ( Auto) 6.4, Lymph # (Auto) 1.1, [place] # (Auto) 0.8, Eos # (Auto) 0.0, Baso # (Auto ) 0.0 03/02/18 06:22: POC Glucose 144 H I & O for Last 24 hours: Intake & Output 02/27/18 02/28/18 03/01/18 03/02/18 11:59 11:59 11:59 11:59 Intake Total 480 / 480 Output Total 2049 Balance -1570 / -1570 Weight 311 lb 8 oz Assessment and Plan (1) CHF (congestive heart failure) Current visit: Yes Status: Acute Category: Medical Code(s): I50.9 - Heart failure, unspecified (2) Hyperlipidemia Current visit: No Status: Acute Qualifiers: Qualified Code(s): E78.4 - Other hyperlipidemia Category: Medical Code(s): E78.5 - Hyperlipidemia, unspecified (3) Diabetes mellitus Current visit: No Status: Chronic Qualifiers: Qualified Code(s): E11.42 - Type 2 diabetes mellitus with diabetic polyneuropathy; Z79.4 - [employer] (current) use of insulin Category: Medical Code(s): E11.9 - Type 2 diabetes mellitus without complications (4) Sleep apnea Current visit: No Status: Chronic Qualifiers: Qualified Code(s): G47.30 - Sleep apnea, unspecified Category: Medical Code(s): G47.30 - Sleep apnea, unspecified (5) Hypertensive disorder Current visit: No Status: Chronic Qualifiers: Qualified Code(s): I10 - Essential (primary) hypertension Category: Medical Code(s): I10 - Essential (primary) hypertension (6) Chronic kidney disease Current visit: No Status: Acute Qualifiers: Qualified Code(s): N18.9 - Chronic kidney disease, unspecified Category: Medical Code(s): N18.9 - Chronic kidney disease, unspecified (7) Hypercalcemia Current visit: No Status: Acute Category: Medical Code(s): E83.52 - Hypercalcemia - Assessment and plan all Dx Assessment and Plan for all problems:: Saw patient, possible discharge later today.
--- NOTE | 2018-03-02 08:30 | Progress Note ---
Subjective Date: 03/02/18 Time: 08:29 Principal diagnosis: Congestive heart failure Interval history: 57 year old white male admitted to facility for congestive heart failure. Pt is feeling much better this morning. Pt stated that after he received the Lasix , he was able to breath easier and swelling of his lower right extremity has decreased. No swelling of the lower right extremity noted. Pt denies chest pain or shortness of breath. Pt stated his abdomen does not feel as tight or is as distended as the previous day. Lung sounds clear. No JVD noted. VS stable. Creatinine (1.66) and BUN (25) have decreased since previous lab. Pt remains in Atrial fibrillation at controlled rate. Pt was able to diuresis 1500ml of urine in a 12 hour period after receiving one dose of Lasix 80mg IV. Echocardiogram (2D) Results 03/01/18 1. Technically difficult study because of the patient's factor and poor acoustic windows, endocardial surfaces are poorly visualized despite use of contrast 2. Left atrium is moderately enlarged, left ventricle is mildly dilated, mild concentric left ventricular hypertrophy, reduced left ventricular systolic function, visually estimated ejection fraction approximately 40%, there is marked hypokinesis involving the inferior, inferobasal and inferolateral apical wall. 3. The right atrium and right ventricle are enlarged with normal contractility. 4. The mitral and tricuspid valve leaflets are minimally thickened. 5. The pulmonic valve is poorly visualized. 6. No significant pericardial effusion noted. DOPPLER INTERROGATION: Doppler interrogation of the aortic, mitral and tricuspid valvular presence of moderate mitral and mild tricuspid regurgitation, tricuspid regurgitant jet velocity is insufficient for calculation of the right ventricular systolic pressure, diastolic parameters are inconclusive. CONCLUSION: 1. Moderately enlarged left atrium, mildly dilated left ventricle, reduced left ventricular systolic function, visually estimated ejection fraction approximately 40% with multiple segmental wall motion abnormality described above, diastolic parameters are inconclusive. 2. Mildly enlarged right ventricle with normal contractility. 3. Moderate mitral and mild tricuspid regurgitation 4. No significant pericardial effusion noted. Discussed with pt the risk and benefits of BIV pacemaker/defibrillator placement for his chronic atrial fibrillation and diastolic dysfunction. Pt continues to refuse to discuss the option of defibrillator. Pt wanting to go home and stated he feels much better. Will have pt continue Lasix 80mg po in morning and Lasix 40 mg in the evening for next two days and have repeat BMP and BNP drawn in 2 days. Cardiology clinic follow up in [address] Jay Kee. Case was discussed with Dr. Concepcion. Exam Vital signs and Labs for Last 24 Hours: Temp Pulse Resp BP Pulse Ox 98.6 F 68 18 114/50 100 03/02/18 07:46 03/02/18 07:46 03/02/18 07:46 03/02/18 07:46 03/02/18 07:46 Laboratory Results - last 24 hr 03/01/18 10:55: Sodium 138, Potassium 4.7, Chloride 102, Carbon Dioxide 24, Anion Gap 16.7 H, BUN 27 H, Creatinine 1.72 H, Estimated GFR 41 L, Est GFR ( Amer) 50 L, Glucose 152 H, Calcium 9.0 03/01/18 10:55: B-Natriuretic Peptide 1240 H 03/01/18 14:55: WBC 10.6, RBC 3.86 L, Hgb 10.7 L, Hct 34.3 L, MCV 88.8, MCH 27.8 , MCHC 31.2 L, RDW 14.5, Plt Count 191, MPV 9.1, Neut % (Auto) 77.7, Lymph % ( Auto) 12.9, [place] % (Auto) 7.2, Eos % (Auto) 2.0, Baso % (Auto) 0.3, Neut # (Auto ) 8.3 H, Lymph # (Auto) 1.4, [place] # (Auto) 0.8, Eos # (Auto) 0.2, Baso # (Auto) 0.0 03/01/18 14:55: Magnesium 1.6 03/01/18 14:55: Troponin I < 0.02, TSH 0.98 03/01/18 14:55: Hemoglobin A1c 7.5 H 03/01/18 16:56: POC Glucose 150 H 03/01/18 21:10: POC Glucose 197 H 03/02/18 05:45: Sodium 137, Potassium 3.9, Chloride 103, Carbon Dioxide 25, Anion Gap 12.9, BUN 25 H, Creatinine 1.66 H, Estimated Creat Clear 99, Estimated GFR 43 L, Est GFR ( Amer) 52 L, Glucose 147 H, Calcium 8.9, Iron 16 L, Triglycerides 103, Cholesterol 91 L, LDL Cholesterol 38, VLDL Cholesterol 21, HDL Cholesterol 32, Cholesterol/HDL Ratio 2.8 03/02/18 05:45: WBC 8.4, RBC 3.73 L, Hgb 10.1 L, Hct 33.3 L, MCV 89.3, MCH 27.1 , MCHC 30.3 L, RDW 14.2, Plt Count 176, MPV 9.9, Neut % (Auto) 76.0, Lymph % ( Auto) 13.1, [place] % (Auto) 10.1 H, Eos % (Auto) 0.4, Baso % (Auto) 0.4, Neut # ( Auto) 6.4, Lymph # (Auto) 1.1, [place] # (Auto) 0.8, Eos # (Auto) 0.0, Baso # (Auto ) 0.0 03/02/18 06:22: POC Glucose 144 H I & O for Last 24 hours: Intake & Output 02/27/18 02/28/18 03/01/18 03/02/18 23:59 23:59 23:59 23:59 Intake Total 480 / 480 Output Total 1350 / 1350 700 / 700 Balance -870 / -870 -700 / -700 Weight 311 lb 8 oz 311 lb 8 oz - Constitutional no acute distress, obese - *Routine HEENT Exam Head: Present: normocephalic ENT: Present: mucous membranes moist - *Routine Neck Exam Present: supple, full ROM, normal carotid upstroke, trachea midline. Absent: JVD, carotid bruit, lymphadenopathy, thyromegaly - Routine Chest/Breast/Axilla Exam Chest wall: Present: tenderness - *Routine Respiratory Exam Present: accessory muscle use, CTA bilaterally. Absent: stridor, wheezes, crackles - *Routine Cardiovascular Exam Present: RRR, Normal S1, Normal S2, S3, irregular rhythm. Absent: murmur, gallop, rubs - *Routine Abdominal Exam Present: soft, normoactive bowel sounds. Absent: distended - *Routine Extremities Exam Present: full ROM, pulses intact, normal capillary refill. Absent: cyanosis, clubbing, edema - Routine Back/Spine/Pelvis Exam Back/Spine: Present: full ROM - *Routine Skin Exam Present: intact, dry, warm - *Routine Neurological Exam Present: alert, oriented X3, CN II-XII intact, moving all extremities, normal tone - Routine Psychiatric Exam Present: normal affect Progress Note: A&P (1) CHF (congestive heart failure) Start date: 03/02/18 Status: Acute Current Visit: Yes (2) Hyperlipidemia Status: Acute Current Visit: No (3) Diabetes mellitus Status: Chronic Current Visit: No (4) Sleep apnea Status: Chronic Current Visit: No (5) Hypertensive disorder Status: Chronic Current Visit: No (6) Chronic kidney disease Status: Acute Current Visit: No (7) Hypercalcemia Status: Acute Current Visit: No Assessment and Plan for All Diagnoses:: Plan: 1. From cardiology standpoint, pt can be discharged home. 2. Add Lasix 80mg po in the morning and Lasix 40mg in the evening for 2 days. 3. Have BMP and BNP repeated in 2 days for renal function status and electrolyte imbalances. 4. Cardiology clinic follow up on Thursday03/05/[address] CASTREJON 5. Return or notify the clinic sooner if symptoms develop. 6. Continue current medication regimen.
--- NOTE | 2018-03-02 15:56 | Discharge Summary ---
General - General Admission date:: 03/01/18 <CarsonAshish medina - 03/04/18 08:52> 03/01/18 <Elayne Wallis - 03/02/18 15:56> Discharge date: 03/02/18 <Elayne Wallis - 03/02/18 15:56> HPI HPI: Mr. Luke is a 57-year-old male with a history of hypertension, hyperlipidemia , type 2 diabetes mellitus, coronary artery disease, atrial fibrillation, chronic systolic heart failure, chronic kidney disease, and cardiomyopathy who presented today to the office of Dr. Concepcion with increasing shortness of breath for the past 4 days. He denies having any chest pain. Dr. Concepcion recommended admission for further evaluation and treatment. Patient describes extreme fatigue making it difficult for him to even walk. He states he has had no chest pain. He states that his heart has been fluttering. He states he has been compliant with taking all of his medicines. He denies cough, fever, and any GI symptoms. At the time of this exam patient is lying in the bed. He appears comfortable. Dr. Concepcion has recommended Lasix 80 mg twice daily. <Elayne Wallis - 03/02/18 15:56> Hospital Course Hospital Course: The patient was diuresed and an echo was ordered. The patient's echo showed a moderately enlarged left atrium, mildly dilated left ventricle, reduced left ventricular systolic function, and a visually estimated ejection fraction of approximately 40% with multiple segmental wall motion abnormalities. He did well with the lasix and was stable to be discharged home. Cardiology wanted to add Lasix 80mg po in the morning and Lasix 40mg in the evening for 2 days. He will need a repeat BMP and BNP in 2 days for renal function status and electrolyte imbalances. He will f/u in the cardiology clinic. <NarendraElayne foreman - 03/02/18 15:56> Objective Vital signs: Temp Pulse Resp BP Pulse Ox 98.4 F 70 18 110/46 96 03/02/18 11:23 03/02/18 12:00 03/02/18 11:23 03/02/18 11:23 03/02/18 11:23 <Ashish Quiles - 03/04/18 08:52> Temp Pulse Resp BP Pulse Ox 98.4 F 70 18 110/46 96 03/02/18 11:23 03/02/18 12:00 03/02/18 11:23 03/02/18 11:23 03/02/18 11:23 <Elayne Wallis - 03/02/18 15:56> Narrative: - Constitutional no acute distress - *Routine HEENT Exam Head: Present: normocephalic, atraumatic Eye: Present: PERRL. Absent: conjunctival icterus, scleral injection ENT: Present: mucous membranes moist, oropharynx clear, nares patent - *Routine Neck Exam Present: supple. Absent: carotid bruit, lymphadenopathy, thyromegaly - *Routine Respiratory Exam Present: CTA bilaterally (Anteriorly and posteriorly. Diminished breath sounds posteriorly) - *Routine Cardiovascular Exam Present: RRR - *Routine Abdominal Exam Present: soft, normoactive bowel sounds. Absent: tenderness Comments: Obese - *Routine Extremities Exam Present: edema (Of the right leg no edema in the left leg). Absent: clubbing, calf tenderness - *Routine Neurological Exam Present: alert, oriented X3, moving all extremities. Absent: altered mental status <Elayne Wallis - 03/02/18 15:56> Results Labs on day of discharge: Labs from last 24 hours 03/02/18 03/02/18 03/02/18 11:10 06:22 05:45 WBC 8.4 RBC 3.73 L Hgb 10.1 L Hct 33.3 L MCV 89.3 MCH 27.1 MCHC 30.3 L RDW 14.2 Plt Count 176 MPV 9.9 Neut % (Auto) 76.0 Lymph % (Auto) 13.1 [place] % (Auto) 10.1 H Eos % (Auto) 0.4 Baso % (Auto) 0.4 Neut # (Auto) 6.4 Lymph # (Auto) 1.1 [place] # (Auto) 0.8 Eos # (Auto) 0.0 Baso # (Auto) 0.0 Sodium Potassium Chloride Carbon Dioxide Anion Gap BUN Creatinine Estimated Creat Clear Estimated GFR Est GFR ( Amer) Glucose POC Glucose 333 H* 144 H Hemoglobin A1c Calcium Iron Triglycerides Cholesterol LDL Cholesterol VLDL Cholesterol HDL Cholesterol Cholesterol/HDL Ratio 03/02/18 03/01/18 03/01/18 05:45 21:10 16:56 WBC RBC Hgb Hct MCV MCH MCHC RDW Plt Count MPV Neut % (Auto) Lymph % (Auto) [place] % (Auto) Eos % (Auto) Baso % (Auto) Neut # (Auto) Lymph # (Auto) [place] # (Auto) Eos # (Auto) Baso # (Auto) Sodium 137 Potassium 3.9 Chloride 103 Carbon Dioxide 25 Anion Gap 12.9 BUN 25 H Creatinine 1.66 H Estimated Creat Clear 99 Estimated GFR 43 L Est GFR ( Amer) 52 L Glucose 147 H POC Glucose 197 H 150 H Hemoglobin A1c Calcium 8.9 Iron 16 L Triglycerides 103 Cholesterol 91 L LDL Cholesterol 38 VLDL Cholesterol 21 HDL Cholesterol 32 Cholesterol/HDL Ratio 2.8 03/01/18 14:55 WBC RBC Hgb Hct MCV MCH MCHC RDW Plt Count MPV Neut % (Auto) Lymph % (Auto) [place] % (Auto) Eos % (Auto) Baso % (Auto) Neut # (Auto) Lymph # (Auto) [place] # (Auto) Eos # (Auto) Baso # (Auto) Sodium Potassium Chloride Carbon Dioxide Anion Gap BUN Creatinine Estimated Creat Clear Estimated GFR Est GFR ( Amer) Glucose POC Glucose Hemoglobin A1c 7.5 H Calcium Iron Triglycerides Cholesterol LDL Cholesterol VLDL Cholesterol HDL Cholesterol Cholesterol/HDL Ratio <Elayne Wallis 03/02/18 15:56> DS: Diagnosis - Discharge Diagnosis (1) CHF (congestive heart failure) Status: Acute (2) Hyperlipidemia Status: Acute (3) Diabetes mellitus Status: Chronic (4) Sleep apnea Status: Chronic (5) Hypertensive disorder Status: Chronic (6) Chronic kidney disease Status: Acute (7) Hypercalcemia Status: Acute <Ashish Quiles 03/04/18 08:52> (1) CHF (congestive heart failure) Status: Acute (2) Hyperlipidemia Status: Acute (3) Diabetes mellitus Status: Chronic (4) Sleep apnea Status: Chronic (5) Hypertensive disorder Status: Chronic (6) Chronic kidney disease Status: Acute (7) Hypercalcemia Status: Acute <Elayne Wallis 03/02/18 15:50> Discharge Plan - Patient Discharge Instructions ACTIVITY: Continue current activity <Elayne Wallis 03/02/18 15:56> DIET: continue same diet <Elayne Wallis 03/02/18 15:56> Additional Instructions: Increase daily Lasix dose and check abs in 2 days per Cardiology 80mg in morning 40mg at night <Ashish Quiles - 03/04/18 08:52> Patient Instructions: Heart-Healthy Diet, DI for Heart Failure <Ashish Quiles - 03/04/18 08:52> Forms: <Ashish Quiles - 03/04/18 08:52> - Follow up Plan Follow up with: Ashish Quiles MD [Staff Physician] - 2 weeks Jay Kee MD [Staff Physician] - 03/05/18 <Ashish Quiles - 03/04/18 08: 52> Disposition: Home, Self-Care <Ashish Quiles - 03/04/18 08:52> Home Medications: Home Medications Medication Instructions Recorded Confirmed Type amlodipine 10 mg tablet 10 mg PO DAILY 10/05/17 03/02/18 History carvedilol 25 mg tablet 25 mg PO BID 10/05/17 03/01/18 History linagliptin 5 mg tablet 5 mg PO DAILY 10/05/17 03/02/18 History spironolactone 50 mg tablet 50 mg PO BID 10/05/17 03/01/18 History aspirin 81 mg tablet,delayed 81 mg PO DAILY tab 02/17/18 03/01/18 History release Fenofibrate Nanocrystallized 48 mg PO DAILY 03/02/18 03/02/18 History [Fenofibrate] Glimepiride [Amaryl] 4 mg PO DAILY 03/02/18 03/02/18 History Pioglitazone HCl/Metformin HCl 1 each PO BID 03/02/18 03/02/18 History [Pioglitazone-Metformin 15-850] Rivaroxaban [Xarelto 15mg tablet] 15 mg PO HS 03/02/18 03/02/18 History Rosuvastatin Calcium [Crestor] 40 mg PO DAILY 03/02/18 03/02/18 History <Ashish Quiles - 03/04/18 08:52> Prescriptions/Medication Reconciliation: Continue amlodipine 10 mg tablet 10 mg PO DAILY carvedilol 25 mg tablet 25 mg PO BID linagliptin 5 mg tablet 5 mg PO DAILY spironolactone 50 mg tablet 50 mg PO BID aspirin 81 mg tablet,delayed release 81 mg PO DAILY tab Glimepiride [Amaryl] 4 mg PO DAILY Pioglitazone HCl/Metformin HCl [Pioglitazone-Metformin 15-850] 1 each PO BID Rosuvastatin Calcium [Crestor] 40 mg PO DAILY Fenofibrate Nanocrystallized [Fenofibrate] 48 mg PO DAILY Rivaroxaban [Xarelto 15mg tablet] 15 mg PO HS Furosemide [Furosemide 40MG tAB] 40 mg PO DAILY #0 tab <Ashish Quiles - 08:52> - Additional Information Additional Information: Discharge medication list is incorrect for Lasix. Patient is going to take Lasix 40 mg 2 tabs in the AM and 1 tab in the PM. <Ashish Quiles - 03/04/18 08:52>
== END 2018-03-02 13:41 | disposition home or self-care (01) ==
LOC: 2ND 10:53 → LAB 10:53 → 2ND 14:34
PROVIDERS: ADMIT Family Medicine; ATTEND Family Medicine

== ENCOUNTER → 2018-03-04 09:24 | Outpatient (CLI) | payer BC, SELFPAY ==
[2018-03-04 12:31] LABS: Anion Gap 16.9 mEq/L (5-15); Blood Urea Nitrogen 36 mg/dL (7-18); Calcium 9.1 mg/dL (8.5-10.1); Carbon Dioxide 26 mmol/L (21.0-32.0); Chloride 101 mmol/L (98-107); Creatinine,Serum 1.88 mg/dL (0.70-1.30); Estimated Glomerular Filt Rate 37 ml/min (>60); GFR (African American) 45 ML/MIN (>60); Glucose 173 mg/dL (74-106); Potassium 4.9 mmoL/L (3.5-5.1); Sodium 139 mmol/L (136-145)
== END ==
PROVIDERS: Visit Provider Internal Medicine Cardiovascular Disease
DX: R60.9 Edema, unspecified (principal)
CPT/HCPCS: 36415; 80048; 83880

== ENCOUNTER → 2018-03-05 08:20 | Outpatient (CLI) | payer BC, SELFPAY ==
[2018-03-05 09:08] LABS: Anion Gap 13.7 mEq/L (5-15); Blood Urea Nitrogen 41 mg/dL (7-18); Calcium 9.6 mg/dL (8.5-10.1); Carbon Dioxide 27 mmol/L (21.0-32.0); Chloride 101 mmol/L (98-107); Estimated Glomerular Filt Rate 35 ml/min (>60); GFR (African American) 42 ML/MIN (>60); Glucose 204 mg/dL (74-106); Potassium 4.7 mmoL/L (3.5-5.1); Sodium 137 mmol/L (136-145)
[2018-03-05 10:50] LABS: Alanine Aminotransferase 20 U/L (12-78); Albumin Level 3.6 gm/dL (3.4-5.0); Alkaline Phosphatase 45 U/L (46-116); Aspartate Amino Transferase 12 U/L (15-37); Bilirubin,Direct 0.1 mg/dL (0.0-0.2); Bilirubin,Indirect 0.1 mg/dL (0.0-0.9); Bilirubin,Total 0.2 mg/dL (0.2-1.0); Cholesterol 103 mg/dL (140-200); HDL Cholesterol 26 mg/dL (27-67); LDL Cholesterol 50 mg/dL (0-130); Total Protein,Serum 7.2 gm/dL (6.4-8.2); Triglycerides 137 mg/dL (30-200); VLDL Cholesterol 27 mg/dL (0-40)
== END ==
PROVIDERS: Urology; Visit Provider Physician Assistant
DX: I25.10 Atherosclerotic heart disease of native coronary artery without angina pectoris (principal); I10 Essential (primary) hypertension; E11.9 Type 2 diabetes mellitus without complications; N18.9 Chronic kidney disease, unspecified; I50.22 Chronic systolic (congestive) heart failure; I42.9 Cardiomyopathy, unspecified; E78.5 Hyperlipidemia, unspecified
CPT/HCPCS: 36415; 80048; 80061; 80076; 83880

== ENCOUNTER → 2018-03-12 07:21 | Outpatient (CLI) | payer BC, SELFPAY ==
[2018-03-12 08:28] LABS: Anion Gap 12.9 mEq/L (5-15); Blood Urea Nitrogen 45 mg/dL (7-18); Calcium 9.1 mg/dL (8.5-10.1); Carbon Dioxide 26 mmol/L (21.0-32.0); Chloride 104 mmol/L (98-107); Creatinine,Serum 1.88 mg/dL (0.70-1.30); Estimated Glomerular Filt Rate 37 ml/min (>60); GFR (African American) 45 ML/MIN (>60); Glucose 201 mg/dL (74-106); Potassium 4.9 mmoL/L (3.5-5.1); Sodium 138 mmol/L (136-145)
== END ==
PROVIDERS: Visit Provider Internal Medicine Cardiovascular Disease
DX: I25.10 Atherosclerotic heart disease of native coronary artery without angina pectoris (principal); I42.9 Cardiomyopathy, unspecified; I10 Essential (primary) hypertension; N18.9 Chronic kidney disease, unspecified; E78.5 Hyperlipidemia, unspecified; E11.9 Type 2 diabetes mellitus without complications
CPT/HCPCS: 36415; 80048

== ENCOUNTER → 2018-03-22 07:05 | Outpatient (CLI) | payer BC, SELFPAY ==
--- NOTE | 2018-03-22 07:07 | NM_ITS ---
History and Indications: Coronary artery disease, previous AR, congestive heart failure, hyperlipidemia, diabetes, renal insufficiency. Procedure: Patient received a 0.4 mg of Lexiscan, resting heart rate was 79 bpm, resting blood pressure 130/67, with Lexiscan maximum heart rate achieved was 88 bpm which is less than 85% of the maximum predicted heart rate and a blood pressure was 110/56. With Lexiscan patient complained of shortness of breath and chest pressure. Electrocardiogram: Resting electrocardiogram showed atrial fibrillation, with Lexiscan there is less than 1.[address] segment depression noted from the baseline EKG. The EKG portion of the Lexiscan Myoview is nondiagnostic. Cardiac stress and resting SPECT images: Cardiac stress and rest SPECT images were obtained using technetium 99 Myoview 28.7 mCi at stress and 9.9 mCi at rest. Gated SPECT further analysis of segmental wall motion and calculation of the ejection fraction also done. Cardiac stress and resting SPECT images show decreased tracer activity in the anterolateral and lateral wall which partially improves on the resting images suggestive of mixed ischemia and scar in that area. Computer derived ejection fraction is 37% with moderate hypokinesis involving the anterolateral and lateral wall. Right ventricle is mildly enlarged with normal contractility. Conclusion: 1. The EKG portion of the Lexiscan Myoview is nondiagnostic. 2. Scintigraphic evidence of Ischemia and scar involving the anterolateral and lateral wall, obturator derived ejection fraction is 37% with segmental wall motion abnormality described above, right ventricle is mildly enlarged with normal contractility. 3. Abnormal Lexiscan Myoview study.
--- NOTE | 2018-03-22 10:30 | HMH.ITSHM ---
lasix metformin carvedilol cestot victoza ticor vistaril asa
== END ==
PROVIDERS: PCP Family Medicine; Visit Provider Internal Medicine Cardiovascular Disease
DX: I50.22 Chronic systolic (congestive) heart failure (principal); R06.00 Dyspnea, unspecified; I42.9 Cardiomyopathy, unspecified; E11.9 Type 2 diabetes mellitus without complications; E78.5 Hyperlipidemia, unspecified
CPT/HCPCS: 78452; 93017; A9502; J2785

== ENCOUNTER → 2018-04-19 11:04 | Outpatient (CLI) | payer BC, SELFPAY ==
[2018-04-19 11:25] LABS: Basophils % 0.4 % (0.1-2.0); Eosinophils # 0.1 K/mm3 (0.0-0.4); Eosinophils % 1.5 % (0.1-12.0); Hematocrit 41.4 % (42.0-52.0); Hemoglobin 13.3 g/dL (14.1-18.0); Lymphocytes # 1.4 K/mm3 (0.7-4.5); Lymphocytes % 15.1 K/mm3 (10-50); Mean Corpuscular HGB Conc 32.1 g/dL (31.8-35.4); Mean Corpuscular Hemoglobin 27.3 pg (27.0-31.2); Mean Platelet Volume 8.4 fl (7.4-10.4); Monocytes # 0.6 K/mm3 (0.1-1.0); Monocytes % 6.8 % (1.7-9.3); Neutrophils # 6.8 K/mm3 (1.8-7.8); Neutrophils % 76.3 % (37.0-80.0); Platelet Count 204 K/mm3 (142-424); Red Blood Count 4.88 M/mm3 (4.60-6.20); Red Cell Distribution Width 14.2 % (11.5-17.5); White Blood Count 8.9 K/mm3 (4.8-10.8)
[2018-04-19 12:59] LABS: Anion Gap 15.8 mEq/L (5-15); Blood Urea Nitrogen 38 mg/dL (7-18); Carbon Dioxide 27 mmol/L (21.0-32.0); Chloride 100 mmol/L (98-107); Creatinine,Serum 2.31 mg/dL (0.70-1.30); Estimated Glomerular Filt Rate 29 ml/min (>60); GFR (African American) 36 ML/MIN (>60); Glucose 232 mg/dL (74-106); Potassium 4.8 mmoL/L (3.5-5.1); Sodium 138 mmol/L (136-145)
== END ==
PROVIDERS: PCP Family Medicine; Visit Provider Physician Assistant
DX: I50.22 Chronic systolic (congestive) heart failure (principal); I42.9 Cardiomyopathy, unspecified; I10 Essential (primary) hypertension; I25.10 Atherosclerotic heart disease of native coronary artery without angina pectoris; E78.4 Other hyperlipidemia
CPT/HCPCS: 36415; 80048; 85025

== ENCOUNTER → 2018-04-30 08:52 | Outpatient (CLI) | payer BC, SELFPAY ==
[2018-04-30 10:40] LABS: Anion Gap 15.4 mEq/L (5-15); Blood Urea Nitrogen 33 mg/dL (7-18); Calcium 8.9 mg/dL (8.5-10.1); Carbon Dioxide 25 mmol/L (21.0-32.0); Chloride 104 mmol/L (98-107); Estimated Glomerular Filt Rate 37 ml/min (>60); GFR (African American) 45 ML/MIN (>60); Glucose 214 mg/dL (74-106); Potassium 4.4 mmoL/L (3.5-5.1); Sodium 140 mmol/L (136-145)
== END ==
PROVIDERS: PCP Family Medicine; Visit Provider Physician Assistant
DX: I10 Essential (primary) hypertension (principal); E11.9 Type 2 diabetes mellitus without complications; I50.22 Chronic systolic (congestive) heart failure; N18.9 Chronic kidney disease, unspecified
CPT/HCPCS: 36415; 80048

== ENCOUNTER → 2018-12-21 14:06 | Outpatient (CLI) | payer BC, SELFPAY | PROVIDERS: PCP Family Medicine; Visit Provider Internal Medicine | DX: I34.0 Nonrheumatic mitral (valve) insufficiency (principal); I50.22 Chronic systolic (congestive) heart failure; R06.02 Shortness of breath | CPT/HCPCS: 93306 ==

== ENCOUNTER → 2019-02-18 10:44 | Outpatient (CLI) | payer BC, SELFPAY ==
[2019-02-18 11:37] LABS: Basophils % 0.3 % (0.1-2.0); Eosinophils # 0.1 K/mm3 (0.0-0.4); Eosinophils % 0.7 % (0.1-12.0); Hematocrit 37.8 % (42.0-52.0); Hemoglobin 11.6 g/dL (14.1-18.0); Lymphocytes # 1.4 K/mm3 (0.7-4.5); Lymphocytes % 13.5 % (10-50); Mean Corpuscular HGB Conc 30.8 g/dL (31.8-35.4); Mean Corpuscular Hemoglobin 26.6 pg (27.0-31.2); Mean Corpuscular Volume 86.5 fl (80-94); Mean Platelet Volume 8.8 fl (7.4-10.4); Monocytes # 0.8 K/mm3 (0.1-1.0); Monocytes % 7.8 % (1.7-9.3); Neutrophils # 8.3 K/mm3 (1.8-7.8); Neutrophils % 77.6 % (37.0-80.0); Platelet Count 189 K/mm3 (142-424); Red Blood Count 4.37 M/mm3 (4.60-6.20); Red Cell Distribution Width 13.5 % (11.5-17.5); White Blood Count 10.7 K/mm3 (4.8-10.8)
[2019-02-18 14:24] LABS: Anion Gap 13.8 mEq/L (5-15); Blood Urea Nitrogen 26 mg/dL (7-18); Calcium 9.5 mg/dL (8.5-10.1); Carbon Dioxide 28 mmol/L (21.0-32.0); Chloride 101 mmol/L (98-107); Creatinine,Serum 1.45 mg/dL (0.70-1.30); Estimated Glomerular Filt Rate 50 ml/min (>60); GFR (African American) 61 ML/MIN (>60); Glucose 193 mg/dL (74-106); Potassium 4.8 mmoL/L (3.5-5.1); Sodium 138 mmol/L (136-145)
== END ==
PROVIDERS: Visit Provider Internal Medicine Cardiovascular Disease
DX: I50.22 Chronic systolic (congestive) heart failure (principal); R06.02 Shortness of breath
CPT/HCPCS: 36415; 80048; 83880; 85025

== ENCOUNTER → 2019-03-04 08:11 | Outpatient (CLI) | payer BC, SELFPAY ==
[2019-03-04 08:30] LABS: Anion Gap 14.7 mEq/L (5-15); Blood Urea Nitrogen 38 mg/dL (7-18); Calcium 8.8 mg/dL (8.5-10.1); Carbon Dioxide 26 mmol/L (21.0-32.0); Chloride 100 mmol/L (98-107); Creatinine,Serum 2.19 mg/dL (0.70-1.30); Estimated Glomerular Filt Rate 31 ml/min (>60); GFR (African American) 38 ML/MIN (>60); Glucose 245 mg/dL (74-106); Potassium 3.7 mmoL/L (3.5-5.1); Sodium 137 mmol/L (136-145)
== END ==
PROVIDERS: Visit Provider Urology
DX: I25.10 Atherosclerotic heart disease of native coronary artery without angina pectoris (principal); I48.91 Unspecified atrial fibrillation; I50.22 Chronic systolic (congestive) heart failure; I50.9 Heart failure, unspecified; R06.02 Shortness of breath; R93.1 Abnormal findings on diagnostic imaging of heart and coronary circulation
CPT/HCPCS: 36415; 80048; 83880

== ENCOUNTER → 2019-03-22 15:39 | Outpatient (CLI) | payer BC, SELFPAY ==
[2019-03-22 16:21] LABS: Basophils % 0.7 % (0.1-2.0); Eosinophils % 0.3 % (0.1-12.0); Hematocrit 34.4 % (42.0-52.0); Hemoglobin 10.6 g/dL (14.1-18.0); Lymphocytes # 1.4 K/mm3 (0.7-4.5); Lymphocytes % 21.7 % (10-50); Mean Corpuscular HGB Conc 30.9 g/dL (31.8-35.4); Mean Platelet Volume 8.7 fl (7.4-10.4); Monocytes # 0.8 K/mm3 (0.1-1.0); Monocytes % 11.2 % (1.7-9.3); Neutrophils # 4.4 K/mm3 (1.8-7.8); Neutrophils % 66.1 % (37.0-80.0); Platelet Count 147 K/mm3 (142-424); Red Cell Distribution Width 13.7 % (11.5-17.5); White Blood Count 6.7 K/mm3 (4.8-10.8)
[2019-03-22 19:07] LABS: Albumin Level 3.3 gm/dL (3.4-5.0); Albumin/Globulin Ratio 1.1 (1.1-1.8); Blood Urea Nitrogen 27 mg/dL (7-18); Calcium 8.6 mg/dL (8.5-10.1); Glucose 201 mg/dL (74-106); Phosphorous 2.8 mg/dL (2.4-4.9); Sodium 139 mmol/L (136-145); Total Protein,Serum 6.3 gm/dL (6.4-8.2)
[2019-03-22 19:21] LABS: Alkaline Phosphatase 49 U/L (46-116)
[2019-03-22 19:28] LABS: Alanine Aminotransferase 44 U/L (12-78); Anion Gap 15.9 mEq/L (5-15); Aspartate Amino Transferase 21 U/L (15-37); Bilirubin,Total 0.5 mg/dL (0.2-1.0); Carbon Dioxide 24 mmol/L (21.0-32.0); Chloride 103 mmol/L (98-107); Creatinine,Serum 1.57 mg/dL (0.70-1.30); Estimated Glomerular Filt Rate 46 ml/min (>60); GFR (African American) 55 ML/MIN (>60); Iron 12 ug/dl (28-170); Potassium 3.9 mmoL/L (3.5-5.1); Thyroid Stimulating Hormone 1.36 uIU/ml (0.358-3.740)
[2019-03-22 20:23] LABS: Hemoglobin A1C 9.7 % (0.0-7.0)
[2019-03-24 11:14] LABS: Creatinine, Urine 85.8 mg/dL (Not Estab.)
[2019-03-24 22:05] LABS: Microalbumin, Urine 1029.4 ug/mL (Not Estab.)
== END ==
PROVIDERS: Visit Provider Family Medicine
DX: R06.02 Shortness of breath (principal); R60.9 Edema, unspecified; E11.9 Type 2 diabetes mellitus without complications; Z79.84 Long term (current) use of oral hypoglycemic drugs; N28.9 Disorder of kidney and ureter, unspecified; D64.9 Anemia, unspecified
CPT/HCPCS: 36415; 80053; 82043; 82570; 83036; 83540; 83880; 84100; 84443; 85025

== ENCOUNTER → 2019-06-22 14:20 | Outpatient (CLI) | payer BC, SELFPAY ==
--- NOTE | 2019-06-22 14:21 | CA_ITS ---
APPROVED REPORT EXAM: Comprehensive 2D, Doppler, and color-flow Echocardiogram Chair Trimmer: Geneva Morales RVT Ht: 6 ft 1 in Wt: 290lbs BSA: 2.52 BP: 172/91 mmHg Indications: Congestive Heart Failure, Atrial Fibrillation, Diabetes, Hyperlipidemia, Hypertension,Sleep apena,Ex smoker Echo Enhancing Agent Indication: Endocardial border delineation Agent(s) / Amount(s) Used: Definity 2 cc 2D Dimensions LVOT 2.13 cm (M/F) 1.5-2.5 M-Mode Dimensions RVDd 3.01 cm (0.9-2.6) LA Diam 5.06 cm (1.9-4.0) LVDd 6.56 cm (3.5-5.7) Ao Diam 3.07 cm (2.0-3.7) LVDs 5.43 cm (3.5-5.7) AV Cusp 1.67 cm (1.5-2.6) IVSd 1.29 cm (0.6-1.1) PWd 1.35 cm (0.6-1.1) EF (Teich) 35.10% FS 17.20% EDV (Teich) 220.50 mL ESV (Teich) 143.10 mL Pulmonary Valve PV Peak Velocity 1.03 (50-150 cm/s) Tricuspid Valve TV Vmax 3.52 (30-100 cm/s) RVSP 49.50 mmHg Left Ventricle Left atrium is moderately enlarged, left ventricle is mildly dilated, there is mild concentric left ventricular hypertrophy, visually estimated ejection fraction approximately 40 to 45%, there is marked hypokinesis involving the inferior and posterolateral wall. Diastolic parameters are inconclusive. Right Ventricle Right atrium and right ventricle moderately enlarged with normal contractility, there is an AICD lead seen in right atrium and right ventricle. Aortic Valve Aortic valve is thickened and calcified leaflet continue to display good mobility, there is no aortic stenosis or aortic insufficiency. Mitral Valve Mitral valve is grossly normal, there is mild mitral regurgitation. Tricuspid Valve Tricuspid valve is grossly normal, there is mild tricuspid regurgitation. Pulmonic Valve Pulmonic valve is poorly visualized. Great Vessels Aortic root is normal size. Pericardium Small pericardial effusion noted. Conclusion 1. Technically difficult study because of the patient factors and poor acoustic windows, Definity contrast was utilized to delineate the endocardial surfaces. 2. Moderate biatrial enlargement, normal left ventricular size, mild concentric left ventricular hypertrophy, visually estimated ejection fraction 40 to 45% with segmental wall motion abnormality described above, diastolic parameters are inconclusive. 3. Enlarged right ventricle with normal contractility. 4. Mild mitral and tricuspid regurgitation. 5. Small circumferential pericardial effusion noted Electronically signed by : Jay Kee, 06/23/2019 13:47:23
== END ==
PROVIDERS: PCP Family Medicine; Visit Provider Internal Medicine Cardiovascular Disease
DX: R06.02 Shortness of breath (principal); I25.10 Atherosclerotic heart disease of native coronary artery without angina pectoris; I50.22 Chronic systolic (congestive) heart failure; I50.9 Heart failure, unspecified; I10 Essential (primary) hypertension; E78.5 Hyperlipidemia, unspecified
CPT/HCPCS: 93306; Q9957

== ENCOUNTER → 2019-06-23 11:35 | Outpatient (CLI) | payer BC, SELFPAY ==
[2019-06-23 13:24] LABS: Anion Gap 14.4 mEq/L (5-15); Blood Urea Nitrogen 24 mg/dL (7-18); Calcium 9.6 mg/dL (8.5-10.1); Carbon Dioxide 29 mmol/L (21.0-32.0); Chloride 102 mmol/L (98-107); Creatinine,Serum 1.65 mg/dL (0.70-1.30); Estimated Glomerular Filt Rate 43 ml/min (>60); GFR (African American) 52 ML/MIN (>60); Glucose 220 mg/dL (74-106); Potassium 4.4 mmoL/L (3.5-5.1); Sodium 141 mmol/L (136-145)
== END ==
PROVIDERS: Visit Provider Internal Medicine Cardiovascular Disease
DX: I25.10 Atherosclerotic heart disease of native coronary artery without angina pectoris (principal); E78.5 Hyperlipidemia, unspecified; I10 Essential (primary) hypertension; I50.22 Chronic systolic (congestive) heart failure; R06.02 Shortness of breath
CPT/HCPCS: 36415; 80048; 83880

== ENCOUNTER 2020-03-17 18:08 | Emergency (ER) | payer BC, SELFPAY ==
[2020-03-17 18:21] VITALS: BP 146/87; PULSE 85; RESP 20; TEMP 36.5; O2SAT 99; BMI 35.6
--- NOTE | 2020-03-17 18:26 | HMH.EDUTC ---
[facility] [place] Clinical Impression: Cellulitis Qualifiers: Site of cellulitis: unspecified site Qualified Code(s): L03.90 - Cellulitis, unspecified Disposition: Home, Self-Care Condition on Discharge: Good Instructions: Cellulitis, DI for Cellulitis -- Adult, Cephalexin Additional Instructions: *Start antibiotic(s) immediately and be sure to take as ordered for the FULL length of time although you may be feeling better or start to see improvement in the next 24-48 hours *Monitor closely. Follow up immediately for new or worsening symptoms including but not limited to redness, swelling, streaking from site fever or chills. *Warm compress 15 minutes 3-4 times day *Never squeeze or pop these on your own. Seek immediate medical attention next time this occurs *Monitor Temp. Tylenol every 4 hours as needed and ibuprofen every 6 hours as needed (as long as your primary care doctor has told you that it is ok to take both. For fever, aches, pain. ER if no less that 101 despite Tylenol and ibuprofen Follow up with your family doctor/primary care physician in the next 48-72 hours if no improvement Return if needed Straight to ER if any life threatening symptoms Over the counter Tylenol as directed on package for fever or pain Keep arm elevated Remember you was given a steriod shot in the [facility] for the next couple of days your blood sugar may be elevated and then should return to normal Prescriptions: cephALEXin [Keflex 500mg Cap] 500 mg PO Q6H 5 Days #20 cap Transmission Status: Pending to Clinic [facility] Referrals: Ashish Quiles MD [Primary Care Provider] - As needed Medical Decision Making - Tone Inquiry Pt receiving controlled substance: No Tone was queried for this patient: No Vital Signs: 03/17/20 18:21 Temperature 97.7 F Temperature Source Oral Pulse Rate [Right Brachial] 85 Respiratory Rate 20 Blood Pressure [Right Arm] 146/87 H Blood Pressure Mean [Right Arm] 106 Blood Pressure Source [Right Arm] Automatic Cuff Blood Pressure Position [Right Arm] Sitting 02 Sat by Pulse Oximetry 99 Oxygen Delivery Method Room Air - Lab Data Lab Results 03/17/20 18:25: Uric Acid 6.5 Orders (Tests/Meds): ORDERS Category Date Time Status Elbow XR left mininum 3 views [XR elbow LT min 3V] Stat Exams 03/17/20 18:57 Ordered - Radiology Data #1 Image(s): Elbow Image Reviewed: Yes I reviewed the patient's radiology image w/the ED provider Preliminary Findings: No Fracture Seen - Reevaluation(s) Time: 19:30 Reevaluation #1: Patient states that he has taken Steriod injection several times in the past with last one being last week with no complications or problems Patient aware that it may elevate his blood sugar but should return to normal [facility] [place] - General Stated complaint: swollen lt elbow Time Seen by Provider: 03/17/20 18:26 Mode of Arrival: Ambulatory Source of Information: Patient Limitations: No Limitations Description of Symptoms (Recalled from Triage Doc. by RN): PATIENT C/O SWELLING AND PAIN TO LEFT ELBOW X 2 DAYS. A SCABBED AREA IS NOTED ABOVE THE SWELLING AND REDNESS TO SWOLLEN AREA NOTED. PATIENT STATES THE SORE WAS THERE APPROX 1 WEEK BEFORE THE SWELLING STARTED. DENIES FEVER. PATIENT SAYS HE DOES HAVE A HISTORY OF GOUT IN THAT ELBOW HEENT Symptoms (Recalled from RN notes): No Resp Symptoms (Recalled from RN notes): No Skin Symptoms (Recalled from RN notes): No MS Symptoms (Recalled from RN notes): Yes Functional Status (Recalled from RN notes): WNL - History of Present Illness Provider Complaint: Patient states that for the last several days he has had redness and swelling along with warmth in his left elbow area States that he has not had any injury to the elbow and has had gout in the left elbow before and feels alot like it did then States that he has a scabbed area on the elbow above the swelling that he scratched but was there for about a week and swelling in left elbow just st
[2020-03-17 18:47] LABS: Uric Acid 6.5 mg/dl (3.5-8.5)
--- NOTE | 2020-03-17 18:57 | XR_ITS ---
PROCEDURE: XR ELBOW LT MIN 3V CLINICAL INDICATION: swelling COMPARISON: No exams were available for comparison FINDINGS: No fracture or dislocation. No lytic or blastic change. There is normal mineralization. The joint spaces are well-preserved. No significant degenerative/arthritic changes. No erosive changes evident. Other findings:Mild soft tissue swelling noted along the dorsal and medial and proximal aspect of the ulna. A 2 mm density is present along the mid aspect of the forearm medially and may represent dystrophic calcification or small foreign body IMPRESSION: Soft tissue swelling. No acute bony findings. Possible small foreign body mid aspect of the forearm Dictated by: Marquez Burgos MD 03/18/2020 07:14 Electronically signed by Marquez Burgos MD in [place] 03/18/2020 07:14
[2020-03-17 19:36] VITALS: BP 146/87; PULSE 85; RESP 20; TEMP 36.5; O2SAT 99
== END 2020-03-17 19:40 | disposition home or self-care (01) ==
PROVIDERS: Emergency Provider Nurse Practitioner; PCP Family Medicine
DX: L03.114 Cellulitis of left upper limb (principal); I50.9 Heart failure, unspecified; E11.9 Type 2 diabetes mellitus without complications; Z79.84 Long term (current) use of oral hypoglycemic drugs; I48.91 Unspecified atrial fibrillation; I10 Essential (primary) hypertension; Z95.0 Presence of cardiac pacemaker; E78.5 Hyperlipidemia, unspecified; Z90.09 Acquired absence of other part of head and neck; Z79.899 Other long term (current) drug therapy
CPT/HCPCS: 73080; 84550; 96372; 99202

== ENCOUNTER → 2020-03-20 12:20 | Outpatient (CLI) | payer BC, SELFPAY ==
--- NOTE | 2020-03-20 12:27 | XR_ITS ---
PROCEDURE: XR LUMBAR SPINE MIN 4V CLINICAL INDICATION: ACUTE BILATERAL LOW BACK PAIN W/O SCIATICA COMPARISON: No exams were available for comparison FINDINGS: No fracture or dislocation. No lytic or blastic change. There is normal mineralization. There is degenerative disc disease in the lower thoracic and at L1-L2 with endplate osteophytes and sclerosis. There is mild degenerative disc disease at L4-5. Other findings:Incidental vascular calcification noted IMPRESSION: Degenerative change, no acute finding Dictated by: Marquez Burgos MD 03/20/2020 15:07 Electronically signed by Marquez Burgos MD in [place] 03/20/2020 15:07
== END ==
PROVIDERS: PCP Family Medicine; Visit Provider Family Medicine
DX: M54.5 Low back pain (principal)
CPT/HCPCS: 72110

== ENCOUNTER → 2020-03-29 10:25 | Outpatient (CLI) | payer BC, SELFPAY ==
[2020-03-29 11:09] LABS: Chloride 96 mmol/L (98-107); Sodium 132 mmol/L (136-145)
[2020-03-29 11:10] LABS: Potassium 4.8 mmoL/L (3.5-5.1)
[2020-03-29 11:13] LABS: Anion Gap 13.8 mEq/L (5-15); Blood Urea Nitrogen 56 mg/dl (9-20); Calcium 9.6 mg/dl (8.4-10.2); Carbon Dioxide 27 mmol/L (22.0-30.0); Estimated Glomerular Filt Rate 34 ml/min (>60); GFR (African American) 42 ML/MIN (>60); Glucose 252 mg/dl (74-100)
== END ==
PROVIDERS: Visit Provider Internal Medicine Cardiovascular Disease
DX: I25.10 Atherosclerotic heart disease of native coronary artery without angina pectoris (principal); I50.22 Chronic systolic (congestive) heart failure; I48.91 Unspecified atrial fibrillation; E78.5 Hyperlipidemia, unspecified; I10 Essential (primary) hypertension
CPT/HCPCS: 36415; 80048

== ENCOUNTER → 2020-04-05 09:41 | Outpatient (CLI) | payer BC, SELFPAY ==
--- NOTE | 2020-04-05 09:46 | NM_ITS ---
PROCEDURE: NM BONE SCAN LIMITED AREA CLINICAL INDICATION: COMPRESSION FX OF 1ST LUMBAR VERTEBRA Acute low back pain the COMPARISON: [facility] CT CHEST W/O CONTRAST from 12/17/2015 CXR2V XR chest 2V from 03/01/2018 XR LUMBAR SPINE MIN 4V from 03/20/2020 TECHNIQUE: Dose 25.3 mCi technetium MDP FINDINGS: Images performed of the lumbar spine region. There is focal increased activity at the T12-L1 region. This could be posttraumatic, inflammatory, or neoplastic. Consider MRI without and with gadolinium enhancement for further evaluation. There is also slight increased activity involving the left 9th 10th and 11th ribs suggesting old fractures. IMPRESSION: 1. Focal increased activity at the T12-L1 junction which could be inflammatory/degenerative, infectious, or neoplastic. Consider MRI without and with gadolinium enhancement for further valuation. 2. Suspect old fractures of the left ninth 10th and 11th ribs Dictated by: Marquez Burgos MD 04/06/2020 09:55 Electronically signed by Marquez Burgos MD in [place] 04/06/2020 09:55
[2020-04-05 13:42] LABS: Bilirubin,Unconjugated 0.2 mg/dL (0.0-1.1)
[2020-04-05 13:43] LABS: Alanine Aminotransferase 24 U/L (12-78); Alkaline Phosphatase 105 U/L (38-126); Aspartate Amino Transferase 25 U/L (17-59); Bilirubin,Direct 0.1 mg/dl (0.0-0.4); Bilirubin,Indirect 0.2 mg/dL (0.0-0.9); Bilirubin,Total 0.3 mg/dl (0.2-1.3); HDL Cholesterol 34 mg/dl (40-60); Total Protein,Serum 6.8 g/dl (6.3-8.2)
[2020-04-05 13:44] LABS: Chol/HDL Ratio 3.3 (1-3.5); Cholesterol 113 mg/dl (140-200); Triglycerides 215 mg/dl (30-150); VLDL Cholesterol 43 mg/dL (0-40)
[2020-04-05 13:54] LABS: Direct LDL Cholesterol 52.33 mg/dL (100-129)
== END ==
PROVIDERS: Internal Medicine Cardiovascular Disease; PCP Family Medicine; Visit Provider Nurse Practitioner Family
DX: S32.010A Wedge compression fracture of first lumbar vertebra, initial encounter for closed fracture (principal); E78.5 Hyperlipidemia, unspecified; I10 Essential (primary) hypertension; I25.10 Atherosclerotic heart disease of native coronary artery without angina pectoris; I48.91 Unspecified atrial fibrillation
CPT/HCPCS: 36415; 78300; 80061; 80076; A9503

== ENCOUNTER → 2021-06-10 08:40 | Outpatient (CLI) | payer BC, SELFPAY ==
[2021-06-10 08:46] LABS: Microscopic, Urine URINE MICROSCOPIC (MICROSCOPIC)
[2021-06-10 09:09] LABS: Basophils # 0.1 K/mm3 (0-0.2); Basophils % 0.6 % (0.1-2.0); Eosinophils # 0.2 K/mm3 (0.0-0.4); Eosinophils % 1.4 % (0.1-12.0); Hematocrit 45.5 % (42.0-52.0); Hemoglobin 14.5 g/dL (14.1-18.0); Lymphocytes # 2.4 K/mm3 (0.7-4.5); Lymphocytes % 19.4 % (10-50); Mean Corpuscular HGB Conc 31.9 g/dL (31.8-35.4); Mean Corpuscular Volume 87.9 fl (80-94); Mean Platelet Volume 9.2 fl (7.4-10.4); Monocytes # 0.9 K/mm3 (0.1-1.0); Monocytes % 7.6 % (1.7-9.3); Neutrophils # 8.6 K/mm3 (1.8-7.8); Platelet Count 241 K/mm3 (142-424); Red Blood Count 5.18 M/mm3 (4.60-6.20); Red Cell Distribution Width 15.4 % (11.5-17.5); White Blood Count 12.1 K/mm3 (4.8-10.8)
[2021-06-10 09:40] LABS: Appearance,Urine CLEAR (Clear); Bilirubin,Urine Negative (Negative); Blood, Urine TRACE-I (Negative); Color,Urine YELLOW (Yellow); Glucose,Urine (UA) TRACE (Negative); Ketones,Urine Negative (Negative); Leukocyte Esterase,Urine Negative (Negative); Nitrate,Urine Negative (Negative); Protein,Urine 2+ (Negative); Urobilinogen,Urine 0.2 EU/dl (0.2)
[2021-06-10 09:41] LABS: Anion Gap 13.6 mEq/L (5-15); Blood Urea Nitrogen 45 mg/dl (9-20); Calcium 10.1 mg/dl (8.4-10.2); Carbon Dioxide 29 mmol/L (22.0-30.0); Chloride 100 mmol/L (98-107); Estimated Glomerular Filt Rate 39 ml/min (>60); GFR (African American) 47 ML/MIN (>60); Glucose 173 mg/dl (74-100); Phosphorous 4.2 mg/dl (2.5-4.5); Potassium 4.6 mmoL/L (3.5-5.1); Sodium 138 mmol/L (136-145)
[2021-06-10 09:52] LABS: Intact Parathyroid Hormone 47.6 pg/mL (7.5-53.5)
[2021-06-10 09:58] LABS: Bacteria,Urine Trace /lpf; WBC,Urine Occasional #/hpf (0-3)
[2021-06-10 10:09] LABS: Creatinine,Urine Random 59 mg/dL (Not Estab.)
== END ==
PROVIDERS: Visit Provider Internal Medicine Nephrology
DX: N18.32 Chronic kidney disease, stage 3b (principal); E55.9 Vitamin D deficiency, unspecified
CPT/HCPCS: 36415; 80069; 81001; 82306; 82570; 83970; 84155; 85025

== ENCOUNTER → 2021-06-18 08:59 | Outpatient (CLI) | payer BC, SELFPAY ==
--- NOTE | 2021-06-18 09:04 | XR_ITS ---
PROCEDURE: XR HIP RT 2-3V W/PELVIS CLINICAL INDICATION: PAIN IN RT HIP COMPARISON: No exams were available for comparison FINDINGS: There is generalized vascular calcification. No acute fracture or dislocation. No lytic or blastic change. Minimal osteoarthritic changes are present with decrease in the joint space medially. IMPRESSION: Minimal osteoarthritic change the right hip. Dictated by: Marquez Burgos MD 06/18/2021 09:58 Marquez Burgos MD in [place] 06/18/2021 09:58
== END ==
PROVIDERS: PCP Family Medicine; Visit Provider Family Medicine
DX: M25.551 Pain in right hip (principal)
CPT/HCPCS: 73502

== ENCOUNTER → 2021-06-24 14:34 | Outpatient (POV) | payer BC, SELFPAY | PROVIDERS: Visit Provider Internal Medicine Nephrology | DX: Z00.00 Encounter for general adult medical examination without abnormal findings (principal) ==

== ENCOUNTER → 2021-07-01 11:18 | Outpatient (POV) | payer BC, SELFPAY ==
--- NOTE | 2021-07-01 12:49 | P.CONS_ITS ---
[facility] History Medical History: Reports:: Atrial Fibrillation, Cardiomyopathy, Congestive Heart Failure, Coronary Artery Disease, Diabetes Mellitus Type 2, Hyperlipidemia, Hypertension, Internal Pacemaker (turned off), Myocardial Infarction, Palpitations, Renal Disease, Renal Insufficiency Denies:: Cancer, Diabetes Mellitus Type 1, MRSA, Seizures *Have you ever received a pneumonia vaccine?: No *Have you received a flu vaccine this season?: No Other Medical History: Reports: Anemia Laterality Cases: Bilateral: Tonsillectomy Other Surgeries: Yes: Cardiac Catheterization, Pacemaker (turned off), Other (R arm sx, LHC) Amputation: No Fractures: No - *Social History Smoking Status: Former smoker # Packs/Day (cigarettes): 0 #Yrs smoked (if former smoker): 0 Alcohol Intake: current Alcohol Intake Frequency:: holidays/special occasions only Substance Use Type: denies use *Occupational Status:: other Housing: house Household Members: spouse Family Hx:: No significant family history
[2021-07-01 12:52] VITALS: BP 149/90; PULSE 71; RESP 18; O2SAT 96; BMI 36.9
--- NOTE | 2021-07-01 12:52 | HMH.PMCON ---
Assessment and Plan (1) Osteoarthritis of right hip Status: Acute Category: Medical Code(s): M16.11 - Unilateral primary osteoarthritis, right hip (2) Right hip pain Status: Acute Category: Medical Code(s): M25.551 - Pain in right hip - Assessment and plan all Dx Assessment and Plan for all problems:: The patient presents with right hip pain. He says the pain is worse with standing and walking. He has tried conservative therapies of physical therapy, home stretching and has been using anti-inflammatories. He has been advised to refrain from using anti-inflammatories with Xarelto. He was unaware and has been taking anti-inflammatories. We will schedule the patient for a right intra-articular hip injection. He does have pain with standing and walking to his right hip. He does not have any further radicular pain. He does have imaging showing arthritic changes to his right hip. We will follow-up with the patient afterwards for reevaluation of symptoms. Patient is on Xarelto and is diabetic. Possible side effects of corticosteroids have been discussed with the patient. Risks and benefits of the procedure have been explained to the patient. Patient would like to proceed with the procedure. Patient has been instructed to contact the clinic with any concerns before the next appointment. Dr. Garcia has reviewed this note and agrees with this plan of care. This note was dictated using voice recognition software and make contain errors or omissions. HPI - Data of Consult Patient: new to practice Consult date: 07/01/21 Requesting Physician: Kathy Brizuela APRN - Consult Narrative Reason for consult: Right hip pain History of present illness: Patient is a 61-year-old white male who presents today for consultation for right hip pain. Patient was referred to us by Dr. Quiles. He reports to me having right hip pain only. He does not have any radicular pain into his lower extremity or into his back. Patient does have a history of back pain for which he did have surgery with Dr. Zayas last year. 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 He did report to have an L1 fracture with repair. The patient says that the pain to his right hip pain suddenly for about a month. He says that he can only stand for 5 minutes or less without having severe pain. He is not having any groin pain or buttock pain. He says he is able to sleep without difficulty on the right side, but standing and walking are when he has severe pain. He did try physical therapy for greater than 6 weeks and does continue with home stretching. He got minimal relief. The patient does have a defibrillator and is on Xarelto therapy. He does rate his pain a 6 out of 10. He is currently in the process of moving and reports that his fell 1 week ago and does have a current hip fracture. As result, he is now trying to move out of an old home and into a new home by himself. He has not had any injective therapy. CC: Kathy Brizuela APRN [facility] History I have reviewed the patient's past medical history: Yes Medical History: Reports:: Atrial Fibrillation, Cardiomyopathy, Congestive Heart Failure, Coronary Artery Disease, Diabetes Mellitus Type 2, Hyperlipidemia, Hypertension, Internal Pacemaker (turned off), Myocardial Infarction, Palpitations, Renal Disease, Renal Insufficiency Denies:: Cancer, Diabetes Mellitus Type 1, MRSA, Seizures *Have you ever received a pneumonia vaccine?: No *Have you received a flu vaccine this season?: No Other Medical History: Reports: Anemia Laterality Cases: Bilateral: Tonsillectomy Other Surgeries: Yes: Cardiac Catheterization, Pacemaker (turned off), Other (R arm sx, LHC) Amputation: No Fractures: No - *Social History Smoking Status: Former smoker # Packs/Day (cigarettes): 0 #Yrs smoked (if former smoker): 0 Alcohol Intake: current Alcohol Intake Frequency:: holida
== END ==
PROVIDERS: Visit Provider Clinical Nurse Specialist Family Health
DX: M16.11 Unilateral primary osteoarthritis, right hip (principal)
CPT/HCPCS: 99202; G0463

== ENCOUNTER 2021-08-19 09:00 | Outpatient (RCR) | payer BC, SELFPAY ==
--- NOTE | 2021-06-10 08:39 | HMH.PTOPWND ---
Rehab Outpt Wound Evaluation Rehab OP Wound Evaluation Start: 06/10/21 07:57 Freq: Status: Active Protocol: Document 06/10/21 08:28 KINDRA (Rec: 06/10/21 08:38 PHORANICETO [id number]) Electronically Signed By Amado Padilla, PT 06/10/21 08:28 Subjective/History History History Pt is 61 yowm who presents with R great toe wound x ~ 1 mo. He reports increased walking resulted in a blister, which then became an open wound. He has PMH of DM-II, CAD, HTN, HL, CHF, CKD-stage III. He reports no pain at this time, but he does have mild neuropathy in his feet. Subjective Subjective Pt with no c/o pain or tenderness to palpation at this time. Wound Eval Wound Right Great Toe Wound Type Diabetic Foot Ulcer Is This a Chronic Wound Yes Wound Length (cm) 0.5 Wound Width (cm) 0.8 Wound Bed Appearance Beefy Red Percentage Granulated (%) 100 Wound Margins Description callus Drainage Description Serosanguineous Drainage Amount Scant Wound Topical Solution/Irrigant Saline Irrigant Primary Dressing Composite Comment optifoam gentle border lite, corn pad Wound Debridement Method Sharps,Gauze,Mechanical Wound Debridement Amount of Tissue Minimal Removed Dressing Change Patient Tolerance Tolerated Well Wound Problems/Impairments Impairments Problems/Impairmments Wound Care Needs,Impaired Self Care/Self Management Prognosis Rehab Potential Good Clinical Impression Consistent with Diagnosis Yes Short Term Goals Number of Weeks 4 Decrease Wound Area Yes: by 50% Outsole Scheduler Goals Number of Weeks 8 Decrease Wound Area Yes: by 100% Patient to be Ind w/ HEP Yes Patient to be Ind w/ Home Wound Care/ Yes Dressing Changes Outpatient Therapy Plan of Care Treatment Plan May Include Therapeutic Exercise Including Home Yes Exercise Program Manual Therapy Techniques Yes Neuromuscular Re-education Yes Therapeutic Activities to Return to Yes Previous Functional/Work Level ADL/Self Care Education Yes Orthotics/Bracing/Splinting Yes Wound Care Yes Eval/Re-Eval Yes Frequency Times per week
--- NOTE | 2021-07-08 09:40 | HMH.RHREAS ---
Rehab Reassessment Rehab OP Re-assessment Start: 07/08/21 09:36 Freq: Status: Active Protocol: Document 07/08/21 09:37 KINDRA (Rec: 07/08/21 09:40 KINDRA [id number]) Electronically Signed By Amado Padilla, PT 07/08/21 09:37 Rehab Re-assessment Subjective Subjective Pt reports no new c/o at this time, Continues to maintain dressings as appropriate. Objective Objective Notes R med great toe wound: L= 0.6 cm, W= 0.8 cm, D= 0.2 cm. Assessment Progress Assessment Progressing as Expected Assessment Notes Healing is slow as expected with continued isabelle-wound callus. Conservatively debriding callus around wound due to pt taking anticoagulant meds. Patient goals met none Goals Not Met ST LT,2,3 Revised Goals none Plan Plan Continue per initial POC. Frequency of Therapy 2 x/wk Duration of therapy 8 wks Time and Billing Re-Eval Time 15 Re-Eval Billing Units 1 PHYSICIAN CERTIFICATION: I certify the specified therapy services for Shlomo Luke are required, authorized, and reviewed every 30 days.
--- NOTE | 2021-08-06 11:29 | HMH.RHREAS ---
Rehab Reassessment Rehab OP Re-assessment Start: 07/08/21 09:36 Freq: Status: Active Protocol: Document 08/06/21 11:26 KINDRA (Rec: 08/06/21 11:29 KINDRA [id number]) Electronically Signed By Amado Padilla, PT 08/06/21 11:26 Rehab Re-assessment Subjective Subjective Pt reports he stays on his feet a lot with work. Objective Objective Notes R Great Toe wound: L= 0.8 cm, W= 0.8 cm, D= 0.4 cm. Assessment Progress Assessment Progressing as Expected Assessment Notes Healing is slow as expected with continued isabelle-wound callus. Conservatively debriding callus around wound due to pt taking anticoagulant meds. Pt continues to have increased sanguineous drainage , and difficult to decrease pressure in this area with WBing. Patient goals met none Goals Not Met ST LT,2,3 Revised Goals none Plan Plan Continue per initial POC. Frequency of Therapy 2 x/wk Duration of therapy 8 wks Time and Billing Re-Eval Time 15 Re-Eval Billing Units 1 PHYSICIAN CERTIFICATION: I certify the specified therapy services for Shlomo Luke are required, authorized, and reviewed every 30 days.
== END 2021-08-19 09:05 | disposition home or self-care (01) ==
LOC: PT 09:00
PROVIDERS: PCP Family Medicine; Visit Provider Family Medicine
DX: S91.101D Unspecified open wound of right great toe without damage to nail, subsequent encounter (principal)
CPT/HCPCS: 97162; 97164; 97597

== ENCOUNTER → 2021-08-27 08:52 | Outpatient (CLI) | payer BC, SELFPAY ==
--- NOTE | 2021-08-27 08:57 | XR_ITS ---
PROCEDURE: XR FOOT WT BEARING RT 3V CLINICAL INDICATION: ulcer COMPARISON: CR [id number] XR foot RT min 3V from 11/03/2017 CR [id number] XR foot wt bearing RT 3V from 12/03/2017 CR [id number] XR foot wt bearing RT 3V from 12/15/2017 CR [id number] XR foot wt bearing RT 3V from 01/05/2018 FINDINGS: Healing fracture involves the distal aspect of the 2nd metatarsal. There is a fracture involving the proximal phalanx of the 3rd digit with intra-articular component extending laterally. Medial component appears to be healing. Healing fracture involving the proximal 4th phalanx. Bandage artifact along the medial aspect of the 1st interphalangeal joint. No bony erosive change apparent Other findings:Pes planus. Vascular calcifications. IMPRESSION: Healing fractures. The 3rd proximal phalanx fracture is incompletely healed laterally No bony destructive process evident. Dictated by: Marquez Burgos MD 08/27/2021 17:33 Marquez Burgos MD in [place] 08/27/2021 17:33
--- NOTE | 2021-08-27 08:57 | XR_ITS ---
PROCEDURE: XR FOOT WT BEARING LT 3V CLINICAL INDICATION: diabetic COMPARISON: CR [id number] XR foot RT min 3V from 11/03/2017 CR [id number] XR foot wt bearing RT 3V from 12/03/2017 CR [id number] XR foot wt bearing RT 3V from 12/15/2017 CR [id number] XR foot wt bearing RT 3V from 01/05/2018 FINDINGS: No fracture or dislocation. No lytic or blastic change. There is normal mineralization. Mild bony hypertrophy of the anterior aspect of the navicular. Pes planus. Generalized vascular calcification. No bony destructive process. Other findings:None. IMPRESSION: Mild degenerative changes pes planus Dictated by: Marquez Burgos MD 08/27/2021 17:31 Marquez Burgos MD in [place] 08/27/2021 17:31
[2021-08-27 09:50] LABS: Basophils # 0.1 K/mm3 (0-0.2); Basophils % 0.7 % (0.1-2.0); Eosinophils # 0.1 K/mm3 (0.0-0.4); Eosinophils % 1.4 % (0.1-12.0); Hematocrit 46.3 % (42.0-52.0); Hemoglobin 14.6 g/dL (14.1-18.0); Lymphocytes % 11.1 % (10-50); Mean Corpuscular HGB Conc 31.6 g/dL (31.8-35.4); Mean Corpuscular Hemoglobin 27.2 pg (27.0-31.2); Mean Platelet Volume 8.8 fl (7.4-10.4); Monocytes # 0.7 K/mm3 (0.1-1.0); Monocytes % 7.8 % (1.7-9.3); Neutrophils # 6.9 K/mm3 (1.8-7.8); Neutrophils % 79.1 % (37.0-80.0); Platelet Count 233 K/mm3 (142-424); Red Blood Count 5.38 M/mm3 (4.60-6.20); Red Cell Distribution Width 15.2 % (11.5-17.5); White Blood Count 8.7 K/mm3 (4.8-10.8)
[2021-08-27 10:16] LABS: Erythrocyte Sedimentation Rate 16 mm/hr (0-20)
[2021-08-27 10:49] LABS: Chloride 98 mmol/L (98-107); Potassium 4.8 mmoL/L (3.5-5.1); Sodium 137 mmol/L (136-145)
[2021-08-27 10:52] LABS: Alanine Aminotransferase 17 U/L (12-78); Albumin Level 4.1 g/dl (3.5-5.0); Albumin/Globulin Ratio 1.5 (1.1-1.8); Alkaline Phosphatase 66 U/L (38-126); Anion Gap 13.8 mEq/L (5-15); Aspartate Amino Transferase 22 U/L (17-59); Bilirubin,Total 0.3 mg/dl (0.2-1.3); Blood Urea Nitrogen 39 mg/dl (9-20); Calcium 9.5 mg/dl (8.4-10.2); Carbon Dioxide 30 mmol/L (22.0-30.0); Estimated Glomerular Filt Rate 36 ml/min (>60); GFR (African American) 44 ML/MIN (>60); Globulin 2.7 g/dL (1.3-3.2); Glucose 280 mg/dl (74-100); Total Protein,Serum 6.8 g/dl (6.3-8.2)
[2021-08-27 10:58] LABS: C-Reactive Protein 13.3 mg/L (0-4)
== END ==
PROVIDERS: PCP Family Medicine; Visit Provider Podiatrist
DX: E11.621 Type 2 diabetes mellitus with foot ulcer (principal); L97.519 Non-pressure chronic ulcer of other part of right foot with unspecified severity
CPT/HCPCS: 36415; 73630; 80053; 85025; 85651; 86140

== ENCOUNTER → 2021-09-09 10:51 | Outpatient (CLI) | payer BC, SELFPAY ==
--- NOTE | 2021-09-09 10:58 | US_ITS ---
FINAL REPORT CLINICAL HISTORY: .DM, EX SMOKER, HTN, HLD, GA, RT GREAT TOE PLANTAR ULCER FINDINGS: ANKLE-BRACHIAL PRESSURE INDICES HISTORY: Pain FINDINGS: Pressure indices are as follows: RIGHT LOWER EXTREMITY: Ankle-brachial pressure index: 1.5 Tibial brachial pressure index: 1.3 Comments: Normal LEFT LOWER EXTREMITY: Ankle-brachial pressure index: 1.1 Tibial brachial pressure index: 0.7 Comments: There is a drop in segmental pressure between the distal SFA and proximal tibial vessels. IMPRESSION: Asymmetry of ankle-brachial indexes may be related to mild occlusive disease in the left lower extremity. Reviewed, Interpreted and Dictated by Fermin Gibbs MD Transcribed by Kassy Caldera Authenticated by Fermin Gibbs MD on 09/09/2021 01:20:15 PM [facility]
== END ==
PROVIDERS: PCP Family Medicine; Visit Provider Podiatrist
DX: R09.89 Other specified symptoms and signs involving the circulatory and respiratory systems (principal)
CPT/HCPCS: 93923

== ENCOUNTER 2021-09-23 09:00 | Outpatient (RCR) | payer BC, SELFPAY ==
--- NOTE | 2021-09-16 16:29 | HMH.PTOPWND ---
Rehab Outpt Wound Evaluation Rehab OP Wound Evaluation Start: 09/16/21 16:22 Freq: Status: Active Protocol: Document 09/16/21 16:22 NOEMIABDON (Rec: 09/16/21 16:28 NOEMIABDON [id number]) Electronically Signed By Polopaty Guzman, PT 09/16/21 16:22 Subjective/History History History This is the initial Physical therapy wound clinic evaluation for Shlomo Luke. Pt is a 61 y/o male referred to PT for c/o non-healing wound on R great toe. Pt states wound began as a blister in April and has failed to heal. Pt has been seen in wound clinic previously and was referred to DPM for debridement and now has been referred back. Subjective Subjective Pt states he is diabetic and has some neuropathy Wound Eval Wound Right Lower Great Toe Wound Type Diabetic Foot Ulcer Is This a Chronic Wound Yes Wound Length (cm) 1.4 Wound Width (cm) 0.9 Wound Depth (cm) 0.3 Wound Bed Appearance Dusky Red Percentage Granulated (%) 100 Wound Margins Description Well Defined Drainage Description Serosanguineous Drainage Amount Small Drainage Odor No Odor Dressing Status Soiled Wound Topical Solution/Irrigant Saline Irrigant Primary Dressing Biosynthetic Dressing Comment purocol silver Wound Secondary Dressing Type Absorbant Pad Comment polymem dot Wound Debridement Method Sharps Wound Debridement Amount of Tissue Minimal Removed Wound Debridement Result Healthy Tissue Revealed, Stopped Due to Bleeding Dressing Change Date 09/16/21 Dressing Change Patient Tolerance Tolerated Well Wound Problems/Impairments Impairments Problems/Impairmments Wound Care Needs Prognosis Rehab Potential Fair Clinical Impression Consistent with Diagnosis Yes Short Term Goals Number of Weeks 4 Decrease Wound Area Yes: 50 Patient to be Ind w/ Home Wound Care/ Yes Dressing Changes Assisted Goals Number of Weeks 8 Decrease Wound Area Yes: 75 Increase Red Granulation Tissue % Yes: 100 Improve Self Care/Self Management Yes Outpatient Therapy Plan of Care Treatment Plan May Include Manual Lymphatic Drainage
== END 2021-09-23 10:00 | disposition home or self-care (01) ==
LOC: PT 09:00
PROVIDERS: PCP Family Medicine; Visit Provider Podiatrist
DX: E11.621 Type 2 diabetes mellitus with foot ulcer (principal); L97.519 Non-pressure chronic ulcer of other part of right foot with unspecified severity; Z51.89 Encounter for other specified aftercare
CPT/HCPCS: 97162; 97597

== ENCOUNTER → 2021-09-30 08:59 | Outpatient (CLI) | payer BC, SELFPAY | PROVIDERS: Visit Provider Nurse Practitioner | DX: U07.1 COVID-19 (principal) | CPT/HCPCS: C9803; U0003; U0005 ==

== ENCOUNTER 2021-10-30 13:39 | Emergency (ER) | payer BC, SELFPAY ==
[2021-10-30 13:50] VITALS: BP 102/65; PULSE 82; RESP 18; TEMP 36.6; O2SAT 99; BMI 38.0
--- NOTE | 2021-10-30 14:14 | HMH.EDUTC ---
[facility] Disposition Clinical Impression: Pseudogout Disposition: Home, Self-Care Condition on Discharge: Good Instructions: DI for Pseudogout, Colchicine Additional Instructions: You was given shot of Solu Medrol in the RUST this may raise your blood sugar but then it should return to your Baseline Take the medication as prescribed Return if needed FOllow up with Family Doctor if no improvement or any worsening of symptoms Prescriptions: Colchicine [Colcrys 0.6mg tablet] 0.6 mg PO DIRECTED #3 tab Transmission Status: Received by Clinic Pharm[facility] Referrals: Ashish Quiles MD [Primary Care Provider] - As needed Forms: Work/School Release Time of Disposition: 14:37 Medical Decision Making - Tone Inquiry Pt receiving controlled substance: No Tone was queried for this patient: No Vital Signs: 10/30/21 13:50 Temperature 97.8 F Temperature Source Oral Pulse Rate [Right Brachial] 82 Respiratory Rate 18 Blood Pressure [Right Arm] 102/65 L Blood Pressure Mean [Right Arm] 77 Blood Pressure Source [Right Arm] Automatic Cuff Blood Pressure Position [Right Arm] Sitting 02 Sat by Pulse Oximetry 99 Oxygen Delivery Method Room Air - Lab Data Lab results reviewed: Yes: I reviewed the patient's lab results. Lab Results 10/30/21 13:56: Uric Acid 8.2 Orders (Tests/Meds): ED MEDICATIONS Discontinued Medications Generic Name Dose Route Start Last Admin Trade Name Hanh PRN Reason Stop Dose Admin Methylprednisolone Sodium Succinate 125 mg 10/30/21 14:32 10/30/21 14:39 Methylprednisolone Sod Succ 125mg Vial IM 10/30/21 14:33 125 mg ONCE ONE Administration Medical Decision Narrative: Patient declined xray Medication dosed per pharmacy [facility] HPI - General Stated complaint: lt ankle pain Time Seen by Provider: 10/30/21 14:14 Mode of Arrival: Ambulatory Source of Information: Patient Limitations: Physical Limitations Description of Symptoms (Recalled from Triage Doc. by RN): pain left ankle HEENT Symptoms (Recalled from RN notes): No Resp Symptoms (Recalled from RN notes): No Skin Symptoms (Recalled from RN notes): No MS Symptoms (Recalled from RN notes): Yes Functional Status (Recalled from RN notes): limping - History of Present Illness Provider Complaint: Patient states that he has been having pain in his left ankle Denies injury States that hurts when he walks on it and feels like it did when he had gout several years ago - Related Data Home Medications Medication Instructions Recorded Confirmed Fenofibrate Nanocrystallized 48 mg PO DAILY 03/02/18 10/14/21 [Fenofibrate] metformin 500 mg tablet 500 mg PO BID 03/25/18 10/14/21 dulaglutide 1.5 mg/0.5 mL 1.5 mg SQ QWEEK ml 10/27/19 10/14/21 subcutaneous pen injector insulin glargine 100 unit/mL (3 50 unit SQ DAILY ml 06/29/20 10/14/21 mL) subcutaneous pen ropinirole 0.25 mg tablet 0.25 mg PO HS PRN tab 08/26/21 10/14/21 tramadol 50 mg tablet 50 mg PO TID tab 08/26/21 10/14/21 dapagliflozin 5 mg tablet 5 mg PO DAILY 10/25/21 10/25/21 Previous Rx's Medication Instructions Recorded albuterol sulfate See Rx Instructions .ROUTE 11/19/20 .COMPLEX #180 milliliter furosemide 40 mg tablet See Rx Instructions .ROUTE 12/17/20 .COMPLEX #180 tab rivaroxaban 15 mg tablet See Rx Instructions .ROUTE 04/22/21 .COMPLEX #90 tab spironolactone 25 mg tablet See Rx Instructions .ROUTE 05/16/21 .COMPLEX #30 tab isosorbide dinitrate 10 mg tablet See Rx Instructions .ROUTE 06/17/21 .COMPLEX #90 tab metoprolol succinate 50 mg See Rx Instructions .ROUTE 06/17/21 tablet,extended release 24 hr .COMPLEX #30 tab clopidogrel 75 mg tablet See Rx Instructions .ROUTE 07/19/21 .COMPLEX #30 tab hydralazine 50 mg tablet See Rx Instructions .ROUTE 10/18/21 .COMPLEX #180 tab Colchicine [Colcrys 0.6mg tablet] 0.6 mg PO DIRECTED #3 tab 10/30/21 Allergies Allergy/AdvReac Type Severity Reaction Status Date / Time No K
[2021-10-30 14:20] LABS: Uric Acid 8.2 mg/dl (3.5-8.5)
[2021-10-30 14:53] VITALS: BP 102/65; PULSE 82; RESP 18; TEMP 36.6; O2SAT 99
== END 2021-10-30 14:53 | disposition home or self-care (01) ==
PROVIDERS: Emergency Provider Nurse Practitioner; PCP Family Medicine
DX: M10.072 Idiopathic gout, left ankle and foot (principal); I48.0 Paroxysmal atrial fibrillation; E11.9 Type 2 diabetes mellitus without complications; I10 Essential (primary) hypertension; E78.5 Hyperlipidemia, unspecified; I25.2 Old myocardial infarction; Z79.899 Other long term (current) drug therapy
CPT/HCPCS: 84550; 96372; 99203; G0463

== ENCOUNTER → 2021-11-04 12:51 | Outpatient (CLI) | payer BC, SELFPAY ==
--- NOTE | 2021-11-04 12:56 | XR_ITS ---
FINAL REPORT CLINICAL HISTORY: PAIN, History of gout FINDINGS: LEFT ANKLE: Three simulated weight-bearing views of the left ankle were obtained. There is no acute fracture or dislocation. There is a small plantar calcaneal spur. There are mild degenerative changes. The mortise is intact. There is no soft tissue abnormality. IMPRESSION: No acute bony abnormality. Chronic changes as above. Reviewed, Interpreted and Dictated by Ryan Mckeon III, MD Transcribed by REHANA Montes Authenticated by Ryan Mckeon III, MD on 11/04/2021 02:42:19 PM [facility]
[2021-11-04 13:33] LABS: Basophils % 0.2 % (0.1-2.0); Eosinophils % 0.2 % (0.1-12.0); Hematocrit 37.2 % (42.0-52.0); Hemoglobin 11.8 g/dL (14.1-18.0); Lymphocytes % 5.5 % (10-50); Mean Corpuscular HGB Conc 31.7 g/dL (31.8-35.4); Mean Corpuscular Hemoglobin 26.8 pg (27.0-31.2); Mean Corpuscular Volume 84.4 fl (80-94); Mean Platelet Volume 9.5 fl (7.4-10.4); Monocytes # 1.1 K/mm3 (0.1-1.0); Monocytes % 6.1 % (1.7-9.3); Neutrophils # 15.6 K/mm3 (1.8-7.8); Neutrophils % 88.1 % (37.0-80.0); Platelet Count 339 K/mm3 (142-424); Red Blood Count 4.41 M/mm3 (4.60-6.20); White Blood Count 17.7 K/mm3 (4.8-10.8)
[2021-11-04 14:17] LABS: MANUAL DIFFERENTIAL MANUAL DIFFERENTIAL (MANUAL DIFF)
[2021-11-04 14:29] LABS: Alanine Aminotransferase 28 U/L (12-78); Albumin Level 3.5 g/dl (3.5-5.0); Albumin/Globulin Ratio 1.2 (1.1-1.8); Alkaline Phosphatase 101 U/L (38-126); Anion Gap 16.6 mEq/L (5-15); Aspartate Amino Transferase 26 U/L (17-59); Bilirubin,Total 0.5 mg/dl (0.2-1.3); Blood Urea Nitrogen 65 mg/dl (9-20); Calcium 9.1 mg/dl (8.4-10.2); Carbon Dioxide 24 mmol/L (22.0-30.0); Chloride 99 mmol/L (98-107); Estimated Glomerular Filt Rate 28 ml/min (>60); GFR (African American) 34 ML/MIN (>60); Globulin 2.9 g/dL (1.3-3.2); Glucose 228 mg/dl (74-100); Potassium 4.6 mmoL/L (3.5-5.1); Sodium 135 mmol/L (136-145); Total Protein,Serum 6.4 g/dl (6.3-8.2); Uric Acid 8.2 mg/dl (3.5-8.5)
[2021-11-04 14:35] LABS: C-Reactive Protein 211.1 mg/L (0-4)
[2021-11-04 14:39] LABS: Erythrocyte Sedimentation Rate 55 mm/hr (0-20)
[2021-11-04 17:41] LABS: Lymphocytes % 5 % (10-50); Monocytes % 6 % (2-9); Neutrophils % 88 % (42-76); Total Cells Counted 100
[2021-11-04 17:42] LABS: Hypochromasia 1+; Platelet Estimate Normal
== END ==
PROVIDERS: PCP Family Medicine; Visit Provider Podiatrist
DX: M25.572 Pain in left ankle and joints of left foot (principal); Z87.39 Personal history of other diseases of the musculoskeletal system and connective tissue; Z51.89 Encounter for other specified aftercare
CPT/HCPCS: 36415; 73610; 80053; 83036; 84550; 85007; 85025; 85651; 86140

== ENCOUNTER → 2021-11-05 11:19 | Outpatient (CLI) | payer BC, SELFPAY ==
--- NOTE | 2021-11-05 11:28 | CT_ITS ---
FINAL REPORT CLINICAL HISTORY: Left ankle pain, cellulitis, evaluate for abscess pt unable to have MRI FINDINGS: CT LEFT ANKLE WITHOUT AND WITH CONTRAST TECHNIQUE: Axial, reformatted, and 3D images were obtained of the left ankle. This study was performed with techniques to keep radiation doses as low as reasonably achievable, (ALARA). Individualized dose reduction techniques using automated exposure control or adjustment of mA and/or kV according to the patient's size were employed. FINDINGS: No fracture is identified. There is no bony erosion. There are vascular calcifications. There is subcutaneous edema or cellulitis. There is no focal fluid collection. Poor contrast bolus. No definite contrast enhancement is seen. IMPRESSION: Subcutaneous edema or cellulitis with no focal fluid collection. Reviewed, Interpreted and Dictated by Ryan Mckeon III, MD Transcribed by Kassy Caldera Authenticated by Ryan Mckeon III, MD on 11/05/2021 01:43:[address] [facility]
--- NOTE | 2021-11-05 12:14 | HMH.ITSTN ---
I spoke with Cheryl in Dr Head office. Dr Head wants to add on CT Ankle without and with iv contrast. Patient had lab work on 11/04/21 and patients labs were BUN 65, Creatine 2.40 and EGFR 28. I told Cheryl per our protocol we do not give contrast to patients with GFR under [address]. [address] Head and due to nature of infection and pt is unable to have MRI, she wanted us to continue with contrast study. We gave patients 1 bottle of water to hydrate before scan. We reduce contrast to 50CC. We also encouraged patient to drink another bottle of water after scan and to continue to drink fluids today.
== END ==
PROVIDERS: PCP Family Medicine; Visit Provider Podiatrist
DX: L03.116 Cellulitis of left lower limb (principal); M25.472 Effusion, left ankle
CPT/HCPCS: 73702; Q9967

== ENCOUNTER 2021-11-07 13:01 | Day surgery (SDC) | payer BC, SELFPAY ==
[2021-11-07 13:10] VITALS: BMI 36.9
[2021-11-07 13:16] VITALS: BP 169/95; PULSE 75; RESP 18; TEMP 36.2; O2SAT 96
[2021-11-07 15:30] VITALS: BP 141/93; PULSE 99; RESP 18; TEMP 36.6; O2SAT 98
--- NOTE | 2021-11-07 15:49 | HMH.OPNOTE ---
Date of procedure: 11/07/21 Pre-op Diagnosis:: 1. Right DFU 2. Left ankle abscess 3. Left ankle cellulitis 4. Left ankle pain 5. DM 6. Obesity Post-op Diagnosis:: Same Procedure performed:: 1. Right hallux wound debridement 2. Left ankle incision and drainage 3. Left ankle wide excisional irrigation and debridement, with deep wound cultures Surgeon:: Ellen Head DPM Anesthesia: local (40cc 0.5% marcaine plain) Estimated blood loss (mL): 10 Clinical Note:: Patient seen and evaluated in the clinic today. A in office joint aspiration and incision and drainage was attempted. Due to patient's pain and extent of purulent drainage, decision made to take patient to the OR. See H&P office note from 11/07/21 for details. Operative findings:: Right subhallux diabetic ulcer noted. Wound sharply excisionally debrided with a curette through skin into/involving subcutaneous tissue. Post debridement wound base 100% granular with minimal bleeding noted. No signs of infection. Post debridement: Wound 1.5 x 1.3 x 0.2 cm. Left ankle had edema and erythema. Pain to palpation. Stab incisions made to the lateral and medial ankle, 0.3x0.1x1cm. No purulence expressed from the lateral ankle or subtalar joint. Medial ankle incision made over the course of the posterior tibial tendon. Incision was approximately 4 x 0.3 x 2 cm. Creamy purulence milky drainage was expressed from deep in the ankle and subtalar joint. There was tracking along the dorsal superior wound toward the top of the foot approximately 2 cm. There was tracking along the course of the posterior tibial tendon approximately 4 cm. The wound did have tracking inferior toward the Achilles tendon about 1 cm. Deep cultures taken. Operative note:: On the same time the patient was deemed an appropriate surgical candidate and with informed consent signed patient was taken to the local procedure operating room. He was placed on table supine. 0.5% Marcaine plain was infused around the left distal leg. Right hallux wound debridement: Right lower extremity prepped and draped in normal sterile fashion. 15 blade and curette used to sharply excisionally debrided the diabetic foot ulcer noted to the plantar surface of the great toe. Predebridement the wound measured 1 x 1 x 0.2 cm with no evidence of infection. Post debridement see operative findings. The wound did extend through skin into/involving subcutaneous tissue. Xeroform dry sterile dressing applied. Left ankle incision and drainage: Left lower extremity was prepped and draped in normal sterile fashion. Stab incision made over the lateral ankle and subtalar joint. See operative findings for details. There was no purulence from the lateral foot or ankle. Attention was directed to the medial ankle where a stab incision was made approximately 0.3 x 0.1 x 0.5 cm. No purulence expressed from this area however there was some serosanguineous drainage. Another incision was made over the course of the PT tendon. See operative findings for measurement details. Significant amount of purulence was expressed from the posterior tibial tendon sheath. At least 10 cc of milky creamy purulent drainage was noted. Left ankle wide excisional irrigation and debridement, with deep wound cultures: A 15 blade and forceps were used to lengthen the incision. Hemostat used to explore the area. There was another pocket of pus deep to the PT tendon which did track proximal to the ankle joint 4 cm. More creamy milky drainage was expressed from this area and the deep ankle wound culture taken. All the open wounds were flushed with saline with gentamicin irrigation. Wound was reexplored and no more purulent drainage noted. 3-0 Prolene was used to loosely reapproximate part of the medial ankle skin so there was no exposed deep tissue. No deep closure performed. Some bleeding noted. 1-4 iodoform packing was inserted into the 2 lateral and 2 medial wounds. A dry sterile irving
[2021-11-07 15:52] VITALS: BP 146/96; PULSE 98; RESP 18; O2SAT 97
[2022-06-05 10:57] LABS: POC Glucose,Bedside 320 (70-110)
== END 2021-11-07 15:56 | disposition home or self-care (01) ==
PROVIDERS: PCP Family Medicine; Visit Provider Podiatrist
PROC: (CPT 27603; principal; 2021-11-07 13:00)
DX: E11.621 Type 2 diabetes mellitus with foot ulcer (principal); Z79.4 Long term (current) use of insulin; Z79.01 Long term (current) use of anticoagulants; Z79.899 Other long term (current) drug therapy; L97.512 Non-pressure chronic ulcer of other part of right foot with fat layer exposed; L03.116 Cellulitis of left lower limb; L02.416 Cutaneous abscess of left lower limb; I48.91 Unspecified atrial fibrillation; I25.10 Atherosclerotic heart disease of native coronary artery without angina pectoris; I42.9 Cardiomyopathy, unspecified; I10 Essential (primary) hypertension; Z20.822 Contact with and (suspected) exposure to COVID-19
CPT/HCPCS: 27603; 11042; 82962; 87070; 87075; 87077; 87186; 87205; C9803; J0696; U0003; U0005

== ENCOUNTER → 2021-11-07 16:37 | Outpatient (CLI) | payer BC, SELFPAY | PROVIDERS: Visit Provider Podiatrist | DX: M25.572 Pain in left ankle and joints of left foot (principal); B95.7 Other staphylococcus as the cause of diseases classified elsewhere; Z51.89 Encounter for other specified aftercare | CPT/HCPCS: 87070; 87077; 87186; 87205 ==

== ENCOUNTER 2021-11-08 09:48 | Outpatient (CLI) | payer BC, SELFPAY ==
--- NOTE | 2021-11-08 10:45 | PC.NURSE ---
PATIENT ARRIVED IN INFUSION AT 1010; PT'S FOOT WAS WRAPPED IN TRASHBAG DUE TO THE WOUND BLEEDING; THE HAD SECURED A TOWEL AND COBANE AROUND THE FOOT TO TRY TO MINIMIZE BLEEDING; CALLED DR BERMUDEZ ONCE THE DRESSING WAS REMOVED AND THERE WAS A SLOW LEAK FROM ONE OF THE INCISIONS. SHE CAME TO INFUSION CLINIC AND SUTURED THE AREA THAT WAS SEEPING; FOOT WAS THEN WRAPPED AND SECURED WITH KERLIX AND KIMBERLI BANDAGE. INSTRUCTED PATIENT TO CALL US BEFORE 4 TODAY IF THEY NOTICED ANY BLEEDING. PATIENT WILL FOLLOW UP WITH MD FIRST OF NEXT WEEK. PT WILL CONTINUE TO COME IN FOR DAILY DRESSING CHANGES.
[2021-11-08 14:49] VITALS: BMI 36.9
[2021-11-08 15:35] LABS: Hematocrit 31.2 % (42.0-52.0); Hemoglobin 9.7 g/dL (14.1-18.0)
--- NOTE | 2021-11-08 16:21 | PC.NURSE ---
PATIENT ARRIVED BACK TO INFUSION AT 1400 WITH DRESSING SOME SATURATED AT THE HEEL; TOOK THE DRESSING OFF AND EXAMINED THE AREA ; THE INCISION THAT WAS LEAKING EARLIER WAS BETTER BUT THERE WAS SOME DRAINAGE COMING FROM THE PACKING STRIP ABOVE THE SUTURES. CALLED AND SPOKE WITH ; CHELSIE ORDERED ; LABS WERE OK NO TRANSFUSION NEEEDED; INSTRUCTED TO RE DRESS THE FOOT; I DID NOT REMOVE THE PACKING STRIPS. APPLIED ABD PADS TO THE AREA; WRAPPED WITH KERLIX AND KIMBERLI THEN DID A PRESSURE DRESSING WITH THE COBANE; INSTRUCTED TO WATCH AREA; MAKE SURE GOOD CIRCULATION IN TOES AND WATCH FOR BLEEDING ; INSTRUCTED HER TO BRING THE PATIENT BACK IN IF SHE NOTICED ANY ABNORMAL BLEEDING; CALLED AND LET HOUSE KNOW ABOUT THE PATIENT IF HE NEEDED TO RETURN
== END 2021-11-08 15:55 | disposition home or self-care (01) ==
LOC: INF 09:49
PROVIDERS: PCP Family Medicine; Visit Provider Podiatrist
DX: M25.572 Pain in left ankle and joints of left foot (principal); M25.472 Effusion, left ankle; L03.116 Cellulitis of left lower limb
CPT/HCPCS: 85014; 85018; G0463

== ENCOUNTER 2021-11-09 08:54 | Outpatient (CLI) | payer BC, SELFPAY | END 2021-11-09 09:46 | disposition home or self-care (01) | LOC: INF 08:54 | PROVIDERS: PCP Family Medicine; Visit Provider Podiatrist | DX: L03.116 Cellulitis of left lower limb (principal); M25.472 Effusion, left ankle; Z48.01 Encounter for change or removal of surgical wound dressing | CPT/HCPCS: G0463 ==

== ENCOUNTER 2021-11-10 08:57 | Outpatient (CLI) | payer BC, SELFPAY ==
[2021-11-10 08:57] VITALS: RESP 22
--- NOTE | 2021-11-10 11:53 | PC.NURSE ---
pt old dressing was removed, minimal serous drainage was noted. when abd pad was removed from inner ankle wound, moderate amount of purulent drainage noted. more packing was able to be inserted in the largest of the wound today, compared to yesterday. pt had total of 4 wounds that required packing.
== END 2021-11-10 09:30 | disposition home or self-care (01) ==
LOC: INF 08:57
PROVIDERS: PCP Family Medicine; Visit Provider Podiatrist
DX: L03.116 Cellulitis of left lower limb (principal); M25.472 Effusion, left ankle; Z48.00 Encounter for change or removal of nonsurgical wound dressing
CPT/HCPCS: G0463

== ENCOUNTER 2021-11-12 09:17 | Outpatient (CLI) | payer BC, SELFPAY ==
[2021-11-12 09:28] VITALS: BMI 36.9
[2021-11-12 09:58] LABS: Basophils # 0.1 K/mm3 (0-0.2); Basophils % 0.4 % (0.1-2.0); Eosinophils % 0.1 % (0.1-12.0); Hematocrit 32.5 % (42.0-52.0); Lymphocytes # 0.7 K/mm3 (0.7-4.5); Lymphocytes % 2.9 % (10-50); Mean Corpuscular HGB Conc 30.7 g/dL (31.8-35.4); Mean Corpuscular Hemoglobin 26.3 pg (27.0-31.2); Mean Corpuscular Volume 85.5 fl (80-94); Mean Platelet Volume 8.9 fl (7.4-10.4); Monocytes % 4.3 % (1.7-9.3); Neutrophils # 20.9 K/mm3 (1.8-7.8); Neutrophils % 92.3 % (37.0-80.0); Platelet Count 407 K/mm3 (142-424); Red Cell Distribution Width 18.5 % (11.5-17.5); White Blood Count 22.6 K/mm3 (4.8-10.8)
[2021-11-12 10:00] LABS: Chloride 100 mmol/L (98-107); Sodium 130 mmol/L (136-145)
[2021-11-12 10:03] LABS: Alanine Aminotransferase 119 U/L (12-78); Albumin Level 3.5 g/dl (3.5-5.0); Alkaline Phosphatase 244 U/L (38-126); Anion Gap 15.2 mEq/L (5-15); Aspartate Amino Transferase 46 U/L (17-59); Bilirubin,Total 0.4 mg/dl (0.2-1.3); Blood Urea Nitrogen 75 mg/dl (9-20); Calcium 8.8 mg/dl (8.4-10.2); Carbon Dioxide 21 mmol/L (22.0-30.0); Creatinine Clearance Estimated 43 mL/min (50-200); Estimated Glomerular Filt Rate 19 ml/min (>60); GFR (African American) 23 ML/MIN (>60); Globulin 3.4 g/dL (1.3-3.2); Glucose 146 mg/dl (74-100); Total Protein,Serum 6.9 g/dl (6.3-8.2)
[2021-11-12 10:08] LABS: C-Reactive Protein 96.6 mg/L (0-4)
[2021-11-12 10:13] LABS: MANUAL DIFFERENTIAL MANUAL DIFFERENTIAL (MANUAL DIFF)
[2021-11-12 10:25] LABS: Potassium 6.2 mmoL/L (3.5-5.1)
[2021-11-12 10:40] LABS: Erythrocyte Sedimentation Rate > 140 mm/hr (0-20)
[2021-11-12 11:14] LABS: Lymphocytes % 3 % (10-50); Monocytes % 2 % (2-9); Neutrophils % 95 % (42-76); Platelet Estimate Normal; Total Cells Counted 100
[2021-11-12 11:15] LABS: Hypochromasia 1+
[2021-11-12 11:16] LABS: Anisocytosis 1+
--- NOTE | 2021-11-12 11:35 | PC.NURSE ---
DRESSING WAS REMOVED AT 1100; ONCE THE DRESSING WAS REMOVED THE ANKLE WAS NOTED TO HAVE A LOT MORE SWELLING THAT YESTERDAY; PT WAS HAVING MORE PAIN TODAY IN THE ANKLE AND WAS HAVING SOME TROUBLE ROTATING THE ANKLE DUE TO THE PAIN; THE AREAS THAT WE PACKED LOOKED WELL AND PT DID NOT EXPERIENCE PAIN WITH THE PACKING MORE JUST WITH ROTATING FOOT; THE FOOT WAS WARM TO TOUCH; SOME REDNESS NOTED; CALLED AND SPOKE WITH AIDAN REGARDING THE FOOT APPEARANCE AND ALSO WITH LAB RESULTS; NEW ORDERS WERE RECEIVED FOR PICC LINE; REPEAT BMP; ROCEPHIN IV AND TO STOP TAKING ORAL ABX'S AT HOME; MD WILL BE TAKING PATIENT BACK TO OR TOMORROW TO WASH OUT WOUND.
--- NOTE | 2021-11-12 12:07 | XR_ITS ---
FINAL REPORT CLINICAL HISTORY: PICC PLACEMENT COMPARISON: March 01, 2018 FINDINGS: There is a left subclavian ICD. There is a right-sided PICC line with the tip not well visualized but appears to terminate in the upper SVC. The heart size is normal. The mediastinum is normal. There is no focal infiltrate or edema. There are no pleural effusions. There is no pneumothorax. There is no osseous abnormality. IMPRESSION: Right PICC line tip is not well visualized but appears to terminate in the upper SVC. Reviewed, Interpreted and Dictated by Ryan Mckeon III, MD Transcribed by Clay Barahona Authenticated by Ryan Mckeon III, MD on 11/12/2021 01:46:10 PM [facility]
[2021-11-12 12:56] LABS: Chloride 99 mmol/L (98-107)
[2021-11-12 12:57] LABS: Potassium 5.4 mmoL/L (3.5-5.1); Sodium 128 mmol/L (136-145)
[2021-11-12 12:59] LABS: Blood Urea Nitrogen 73 mg/dl (9-20); Creatinine Clearance Estimated 47 mL/min (50-200); Estimated Glomerular Filt Rate 21 ml/min (>60); GFR (African American) 26 ML/MIN (>60)
[2021-11-12 13:00] LABS: Anion Gap 13.4 mEq/L (5-15); Calcium 8.6 mg/dl (8.4-10.2); Carbon Dioxide 21 mmol/L (22.0-30.0); Glucose 147 mg/dl (74-100)
[2021-11-12 14:00] VITALS: BP 122/74; PULSE 68; RESP 20; TEMP 36.9; O2SAT 95
--- NOTE | 2021-11-12 15:13 | PC.NURSE ---
HALEY SANTANA CALLED RN AT 1025 TO REPORT K LEVEL OF 6.4; RN REPEATED AND VERIFIED PT NAME, , AND LAB VALUE. RESULTS CALLED TO [facility]; ORDERS TO REPEAT BMP NOW AND CALL RESULTS TO
== END 2021-11-12 14:45 | disposition home or self-care (01) ==
LOC: INF 09:17
PROVIDERS: PCP Family Medicine; Visit Provider Podiatrist
DX: L03.116 Cellulitis of left lower limb (principal); M25.472 Effusion, left ankle
CPT/HCPCS: 36415; 36569; 71045; 80048; 80053; 85007; 85025; 85651; 86140; 96365; C1751; G0463; J0696

== ENCOUNTER 2021-11-13 07:35 | Day surgery (SDC) | payer BC, SELFPAY ==
[2021-11-13] VITALS (13 sets, daily range): BP systolic 92–145; BP diastolic 44–80; PULSE 64–109; RESP 14–18; TEMP 36.6–36.8; O2SAT 96–100; BMI 36.9
--- NOTE | 2021-11-13 10:30 | XR_ITS ---
FINAL REPORT CLINICAL HISTORY: Post op I D COMPARISON: November 04, 2021 FINDINGS: LEFT ANKLE: Three views of the left ankle were obtained. There are interval postoperative changes with a drain present posteriorly and medially. Multiple antibiotic beads are present. There is soft tissue air. There is soft tissue swelling. IMPRESSION: Postoperative changes as described. Reviewed, Interpreted and Dictated by Ryan Mckeon III, MD Transcribed by Tamra Canseco Authenticated by yRan Mckeon III, MD on 11/13/2021 01:19:08 PM [facility]
--- NOTE | 2021-11-13 10:30 | XR_ITS ---
FINAL REPORT CLINICAL HISTORY: Post op DFU FINDINGS: RIGHT FOOT 3 views were obtained. There is definite no acute fracture. There is a chronic fracture of the distal 2nd metatarsal with flattening of the 2nd metatarsal head. There is a probable chronic fracture of the proximal 3rd proximal phalanx. There is a chronic fracture of the 5th proximal phalanx. There are mild degenerative changes. There is no soft tissue abnormality. IMPRESSION: Degenerative and chronic changes as described. No definite acute fracture. Reviewed, Interpreted and Dictated by Ryan Mckeon III, MD Transcribed by Tamra Canseco Authenticated by Ryan Mckeon III, MD on 11/13/2021 01:19:26 PM [facility]
--- NOTE | 2021-11-13 11:22 | HMH.OPNOTE ---
Date of procedure: 11/13/21 Pre-op Diagnosis:: 1. Left ankle abscess 2. Left ankle cellulitis 3. Right hallux DFU Post-op Diagnosis:: Same Procedure performed:: 1. Right hallux wound debridment 2. Right hallux bone biopsy 3. Left ankle incision and drainage 4. Left ankle wide excisional irrigation and debridement, with deep wound cultures 5. Left ankle calcaneal bone biopsy 6. Left partial delayed primary closure 7. Application of antibiotic beads 8. Application of DAKOTA drain Surgeon:: Ellen Head DPM EMPLOYEE RELATIONS MANAGER:: Shaggy Gage Anesthesia: regional (Left popliteal nerve block) Estimated blood loss (mL): 40 Clinical Note:: Patient underwent incision and drainage of the left ankle 11/07/2021. Patient has been coming to [facility] for daily dressing changes with Betadine soaked packing. He had repeat labs yesterday. His white count was elevated. Discussed plan of care with Dr. Quiles. Patient had PICC line placed. He will be getting daily 1 g IV Rocephin. He stopped the Clinda and Levaquin based on the MSSA cultures. Discussed continued infection likely secondary to abscess/purulent pocket. We discussed conservative versus surgical treatment options. We discussed conservative care including IV antibiotics and local wound care but strongly recommend surgical incision and drainage. Patient understands that they could have wound healing complications including delayed healing and infection. We discussed that if the wound does not heal, it is possible that they may need further debridement. Patient understands if infection spreads into the bone, it may warrant proximal amputation and could result in further loss of digits, loss of partial foot or loss of leg. We discussed the risks and benefits in great detail. Other surgical risks include: prolonged pain and swelling, further infection requiring oral or IV antibiotics, delay in healing of soft tissue or bone, nerve or blood vessel damage, CRPS/RSD, DVT, anesthesia complications, and even . All questions answered. Patient verbalized understanding. Consent obtained. Operative findings:: Right subhallux diabetic ulcer noted. Wound sharply excisionally debrided with a 15' blade, forceps and curette through skin into/involving subcutaneous tissue. Post debridement wound base 100% granular with minimal bleeding noted. No signs of infection. Bone biospy performed from dorsal hallux. Bone hard with no obvious signs of infection noted. Post debridement: Wound 1.2 x 1.2 x 0.2 cm. Left ankle had edema and erythema. All suture removed. Large incisions made to the over previous lateral and medial ankle, 5x0.3x2cm. There was new white milky creamy purulence expressed from the lateral ankle, subtalar joint and tracking behind the back of the ankle along the Achilles tendon. New deep cultures taken. New incision made over the dorsal lateral foot over the course of the extensor tendons, 3 times 0.2 x 0.3 cm. Wound explored and there was some purulence noted which was expressed and drained. Medial ankle incision made over the course of the posterior tibial tendon. Incision was approximately 4 x 0.3 x 2 cm. Some serosanguineous drainage but no purulent drainage was expressed from deep in the PT tendon. There was no new tracking along the course of the posterior tibial tendon. There was tracking along the dorsal superior wound toward the top of the foot approximately 2 cm. The wound did have tracking inferior toward the Achilles tendon about 3cm. Deep cultures taken. There was some liquefactive tissue noted to the lateral foot over extensor digitorum brevis and medial ankle. It almost appeared like a necrotizing tissue situation as the muscle and tendons were shredded and essentially nonviable.Through the lateral incision the calcaneus at the level of the CC joint was visualized. Bone looked intact but a piece was taken and sent for bone culture and bone pathology. The joint appears to be intact with no evide
--- NOTE | 2021-11-13 11:39 | SUR.OPER ---
0850- pt taken to the OR following a regional block to the left leg. No anesthesia needed. Sbarnes will be monitoring v/s every 15 minutes during procedure.
--- NOTE | 2021-11-13 11:47 | SUR.PHASEII ---
Pt and educated on DAKOTA drain and use. Dressing C/D/I. Scant amount of drainage in DAKOTA drain @ this time. Pt made aware of NWB restrictions, he will be seen tomorrow during his infusion time by PT for gait training per Dr. Head. Is already prescribed oxycodone for pain. Currently sitting up in bed drinking water, tolerating well. IV rocephin infusing per MD orders. No needs voiced.
--- NOTE | 2021-11-13 15:26 | HMH.ANESCL ---
[facility] Anesthesia Checklist - Patient Identification Patient Identification: Arm Band - Structural Data Admitted From: Home Planned Operative Procedure/s: I&D Left Foot Consent for Planned Operative Procedure(s) Verified: Yes Verified Documents: Surgical Consent - NPO Status Verified Time NPO: 00:00 - Additional verifications Anesthesia Reactions: No Hx Blood Transfusions: Yes Blood Transfusion Reaction: No - Anesthesia Plan Anesthesia Risk discussed: Yes Anesthesia Plan: Verified ASA Class: III Anesthesia Type: Regional Block - Preoperative Comments Pre-Operative Comments: consulted by Dr Head to do popliteal/salphenous nerve block for pt originally scheduled to undergo local procedure in the OR. pt states that he is ok being awake for procedure but would like medication for anxiety to tolerate nerve block. versed 2 mg given and Popliteal/saphenous block performed without complication. [facility] History I have reviewed the patient's past medical history: Yes Medical History: Reports:: Atrial Fibrillation, Cardiomyopathy, Congestive Heart Failure, Coronary Artery Disease, Diabetes Mellitus Type 2, Hyperlipidemia, Hypertension, Internal Pacemaker ( pt states turned off ), MRSA, Myocardial Infarction, Palpitations, Renal Disease, Renal Insufficiency Denies:: Cancer, Diabetes Mellitus Type 1, Seizures *Have you ever received a pneumonia vaccine?: Yes *Have you received a flu vaccine this season?: Yes Other Medical History: Reports: Anemia. Denies: Blood Transfusion Reaction Anesthesia experience/problems:: nac Laterality Cases: Bilateral: Tonsillectomy Other Surgeries: Yes: Cardiac Catheterization, Colonoscopy, Coronary Stent, Pacemaker ( pt states turned off ), Other (R arm sx, LHC) Amputation: No Fractures: No - *Social History Last grade of school completed: High school graduate Smoking Status: Former smoker # Packs/Day (cigarettes): 0 #Yrs smoked (if former smoker): 0 Alcohol Intake: current Alcohol Intake Frequency:: a few times a week Substance Use Type: denies use *Occupational Status:: employed Housing: house Household Members: spouse *Travel in the last 8 weeks: None Family Hx:: No significant family history
[2022-06-05 10:57] LABS: POC Glucose,Bedside 152 (70-110)
== END 2021-11-13 12:04 | disposition home or self-care (01) ==
PROVIDERS: PCP Family Medicine; Visit Provider Podiatrist
PROC: (CPT 11042; principal; 2021-11-13 09:00)
DX: E11.621 Type 2 diabetes mellitus with foot ulcer (principal); L97.511 Non-pressure chronic ulcer of other part of right foot limited to breakdown of skin; L02.416 Cutaneous abscess of left lower limb; E11.42 Type 2 diabetes mellitus with diabetic polyneuropathy; I10 Essential (primary) hypertension; I48.91 Unspecified atrial fibrillation; I42.9 Cardiomyopathy, unspecified; I25.10 Atherosclerotic heart disease of native coronary artery without angina pectoris; Z87.891 Personal history of nicotine dependence; Z79.4 Long term (current) use of insulin; Z79.899 Other long term (current) drug therapy; Z79.01 Long term (current) use of anticoagulants; B95.61 Methicillin susceptible Staphylococcus aureus infection as the cause of diseases classified elsewhere; B95.2 Enterococcus as the cause of diseases classified elsewhere
CPT/HCPCS: 11042; 11043; 20240; 73610; 73630; 82962; 87070; 87075; 87077; 87186; 87205; 88304; C1713; J0670; J0696; J3370; Q4211